=== PATIENT | female | born 1985 | race Caucasian/White ===

== ENCOUNTER 2023-10-19 07:32 | Inpatient (IN) ==
--- OUTSIDE RECORDS SUMMARY | 2023-10-19 07:44 | External Medical Summary | Summary of Care ---
Author Name Unknown Organization [facility] Address [address] [place] [address] Phone [phone] Care Team Providers Care Oceanology Teacher Name Role Phone Samantha Wells DO Primary Care Provider [phone] Encounter Details Date Type Department Care Team (Late st Contact Info) Description 10/08/2023 2:30 PM EST Office Visit [facility] [place] [facility] Maternal Medicine, [facility] [address] [facility] [place] [address] Maureen Wagner DO [address] [place] [address] affected by previous bariatric surgery, currently in third trimester*; Multigravida of advanced maternal age in first trimester; Gestational diabetes mellitus (GDM) in third trimester, gestational diabetes method of control unspecified; Anomaly of heart of fetus affecting , antepartum, single or unspecified fetus; Ultrasound for screening for growth restriction; 38 weeks gestation of Allergies No known active allergiesdocumented as of this encounter (statuses as of 10/08/2023) Medications Medication Sig Dispensed Refills Start Date End Date Status Acetaminophen 500 MG Oral Tablet (Tylenol)Indications :Morbid obesity (HCC),Family history of factor V deficiency,Pre-opera tive examination take 2 tabs by mouth every 8 hours pain after surgery for 3 days 18 Tablet 0 02/19/2022 Active Additional Information Patient not taking.Reported on 08/24/2023 Vitamin D 50 MCG (2000 UT) Oral Tablet Take 2,000 Units by mouth in the morning. 0 Active Cyanocobalamin 1000 MCG/ML Injection KitIndications:Intes tinal postoperative nonabsorption Inject 1,000 mcg into a large muscle every month 1 mL 11 02/27/2023 Active 19 29-1 MG Oral Tablet Chewable Take by mouth. 0 Active Syringe Luer Lock 25G X 5/8" 3 MLIndications:Intest inal postoperative nonabsorption For vitamin B12 injections 12 Each 0 06/30/2023 Active Calcium Citrate-Vitamin D3 315-6.25 MG-MCG Oral Tablet Take by mouth. 0 Active OneTouch Verio w/Device KitIndications:High- risk in second trimester, affected by previous bariatric surgery, currently in second trimester Use as directed. For testing blood sugar 4 times daily. One fasting level in morning. And 3 additional levels 1 hour after each meal (breakfast, lunch, dinner). 1 Kit 0 07/17/2023 Active OneTouch Verio In Vitro Strip (Glucose Blood)Indications:Hi gh-risk in second trimester, affected by previous bariatric surgery, currently in second trimester For testing blood sugar 4 times daily. One fasting level in morning. And 3 additional levels 1 hour after each meal (breakfast, lunch, dinner). 100 Strip 0 07/17/2023 Active LancetsIndications:H igh-risk in second trimester, affected by previous bariatric surgery, currently in second trimester For testing blood sugar 4 times daily. One fasting level in morning. And 3 additional levels 1 hour after each meal (breakfast, lunch, dinner). 100 Each 0 07/17/2023 Active Breast Pump Pump daily while breast feeding 1 Each 0 07/17/2023 Active Additional Information Patient not taking.Reported on 08/24/2023 OneTouch Verio In Vitro Strip (Glucose Blood)Indications:Di et controlled gestational diabetes mellitus (GDM) in third trimester,Supervisio n of high risk in third trimester Monitor blood sugar four times daily (once fasting & 1 hour after breakfast, lunch, and dinner). 150 Strip 6 08/24/2023 Active OneTouch Delica Lancets 33GIndications:Diet controlled gestational diabetes mellitus (GDM) in third trimester,Supervisio n of high risk in third trimester Monitor blood sugar four times daily (once fasting & 1 hour after breakfast, lunch, and dinner). 200 Each 6 08/24/2023 Active Promethazine HCl 25 MG Oral Tablet (Phenergan)Indicatio ns:Nausea and vomiting during Take 0.5 Tablets by mouth every 6 hours as needed for Nausea. 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 Until delivery. 60 Tablet 1 09/23/2023 Active documented as of this encounter (statuses as of 10/08/2023) Active Problems Patient Care Coordination No te Formatting of this note is d ifferent from the original. 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 Enrolled in [employer]. Instructions provided to report blood sugars each week for MFM review; continue diet controlled; request food diary 09/10/23-stable 09/17/23-stable 09/22/23: RPM Stable 10/01/23- stable 10/08/23- elevated BS after meals.msg sent to have patient scheduled for adapt Last Assessment & Plan: Working with [facility]. cardiac anomaly affecting , antep artum 06/09/2023 Overview: Muscular VSD. Needs non-urgent peds echo after delivery. Last Assessment & Plan: Muscular VSD. Needs non-urgent peds echo after delivery. Multigravida of advanced maternal age in first t rimester 03/19/2023 Overview: Low risk NIPT. Will be 38 yo at time of delivery. Last Assessment & Plan: CONSIDERATIONS: We reviewed the most pertinent aspects of the following: Advanced maternal age (AMA) refers to a woman with a diane who will be at the age of 35 or older at the estimated time of delivery and may be associated with increased morbidity. In addition to the risk of chromosomal abnormalities, there is an increased risk of congenital/structural anomalies. RECOMMENDATIONS: Recommend MFM anatomy ultrasound at 19-20 weeks gestation. As patient is 40 or greater at KENNETH: Recommend surveillance with weekly NST at 38 weeks. Recommend delivery by EDC. Marijuana use during 03/19/2023 Overview: D/c use with [facility]. Counseled on recommendation for no marijuana use in or . Medication exposure during first trimester of pr egnancy 03/19/2023 Overview: Wellbutrin, Prozac, Zofran. Stopped prozac a couple of weeks ago. Also stopped zofran and switched to phenergan. Last Assessment & Plan: Wellbutrin - Not associated with increased risk of congenital defects. Antidepressant use (not specific to Wellbutrin) in may cause temporary symptoms in newborns after delivery such as irritability, trouble sleeping/eating, however these symptoms resolve on their own and do not require treatment. Zofran - A few small studies showed a possible increased risk of heart defects (< 1%), however most studies have not shown and increased risk of defects. Fluoxetine: Not expected to increase the risk for congenital anomalies; exposure during the late third trimester may be associated with jitteriness, irritability, difficulty eating/sleeping. Most of these effects are mild and self-limited. Studies also do not agree if exposure after 20 weeks might increase the chance for pulmonary hypertension. Among the studies that suggested an increased chance, the overall chance for this lung problem was less than 1/100 (less than 1%). Anxiety during 03/19/2023 Overview: Doing well on Wellbutrin alone. No concerns at this time. Last Assessment & Plan: ANXIETY AND DEPRESSION CONSIDERATIONS: Untreated maternal anxiety and depression may be associated with an increased risk of multiple poor obstetrical outcomes including miscarriages, low weight, and delivery. Women with a history of anxiety or depression are at risk for recurrence both during and/or the period. Studies of first-trimester SSRI exposure do not demonstrate consistent data to support an increased risk for structural malformations. Anti-anxiety or depression medications have been associated with transient effects (withdrawal syndrome). RECOMMENDATIONS: Mental illness can and should be treated during when the benefits of treatment outweigh potential risks. Referral to behavioral health services as clinically indicated. H/O precipitous labor and deliveries, antepartum 03/19/2023 History of eating disorder 03/19/2023 Prothrombin mutation 03/19/2023 Overview: Heterozygous. Patient denies any personal history of VTE. Father has history of VTE. Last Assessment & Plan: CONSIDERATIONS AND RECOMMENDATIONS: Reviewed that patients who are heterozygous for prothrombin gene mutation and no history of VTE have a 0.4% to 2.6% risk for developing a VTE in . For these patients we do not recommend anticoagulation therapy during the antepartum stage of . Prophylactic anticoagulation therapy in the period is recommended as the patient has additional risk factors (first-degree relative with a history of thrombotic event. Discussed that prothrombin gene mutation has an autosomal dominant inheritance pattern. As the patient is heterozygous for the prothrombin gene mutation, there is a 50% chance that her child may be heterozygous for this gene. Previous bariatric surgery complicating pregnanc y 03/19/2023 Overview: Hx Kenneth-en-y 02/2022. Doing well without complications since. Follows with nutrition and keeps up with vitamin supplementation. Last Assessment & Plan: I reviewed the ultrasound. The anatomy that was visualized appears unremarkable, with exception of the mid muscular ventricular septal defect. The overall estimated weight is consistent with the 87th percentile for the gestational age and the abdominal circumference is consistent with the 97th percentile for the gestational age. The amniotic fluid volume is normal at 17 cm. Health counseling 03/17/2023 Overview: Problem Action Taken Date entered Entered by Date resolved Advance maternal age Maternal Medicine Consult 03/17/2023 Jackie Hartman RN 03/17/2023 Problem Action Taken Date entered Entered by Date resolved Nausea and vomiting due to Nutrition Review 9 months booklet 03/17/2023 Jackie Hartman RN 03/17/2023 Problem Action Taken Date entered Entered by Date resolved Fatigue Good nutrition and hydration will help 03/17/2023 Jackie Hartman RN 03/17/2023 Problem Action Taken Date entered Entered by Date resolved Need for food assistance referred to [facility] and local food marie 03/17/2023 Jackie Hartman RN 03/17/2023 Problem Action Taken Date entered Entered by Date resolved Current needs or questions Patient denies having any current needs or questions 04/15/2023 Natalia Nava RN 04/15/2023 Problem Action Taken Date entered Entered by Date resolved Current needs or questions Patient denies having any current needs or questions 07/17/2023 Jackie Hartman RN 07/17/2023 Problem Action Taken Date entered Entered by Date resolved Current needs or questions Patient denies having any current needs or questions 07/31/2023 Jackie Hartman RN 07/31/2023 Problem Action Taken Date entered Entered by Date resolved Current needs or questions Patient denies having any current needs or questions 08/12/2023 Jackie Hartman RN 08/12/2023 Problem Action Taken Date entered Entered by Date resolved Current needs or questions Patient denies having any current needs or questions 09/23/2023 Jackie Hartman RN 09/23/2023 Problem Action Taken Date entered Entered by Date resolved Current needs or questions Patient denies having any current needs or questions 10/08/2023 Jackie Hartman RN 10/08/2023 Last Assessment & Plan: Problem Action Taken Date entered Entered by Date resolved Current needs or questions Patient denies having any current needs or questions 06/15/2023 Natalia Nava RN 06/15/2023 Fatigue 03/03/2023 S/P bariatric surgery 03/21/2022 SREEKANTH (obstructive sleep apnea) 03/07/2022 Pre-operative examination 02/19/2022 Other iron deficiency anemias 01/21/2022 Family history of factor V deficiency 11/21/2020 RLS (restless legs syndrome) 10/17/2019 ADHD (attention deficit hype ractivity disorder), 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 Urge incontinence of urine 03/12/2018 High-risk 05/23/2015 History of positive PPD 05/23/2015 H/O bulimia nervosa 05/23/2015 H/O: substance abuse 05/23/2015 DAMION (generalized anxiety disorder) 01/12/2015 Major depressive disorder, recurrent episode 04/2015 Estimated Date of Delivery Comme nts Yes 10/22/2023 Based on Ultraso und documented as of this encounter (statuses as of 10/08/2023) Resolved Problems Problem Noted Date Diagnosed Date Resolved Date Supervision of normal 03/19/2023 03/20/2023 Nausea and vomiting during 03/19/2023 03/20/2023 Less than 8 weeks gestation of 03/03/2023 03/20/2023 Insulin resistance 01/17/2022 3 Morbid obesity 09/16/2021 03/26/2023 INFORMATION 04/12/2021 04/12/2021 Rectocele 03/12/2018 08/23/2019 Cystocele, midline 03/12/2018 0 Varicose veins of leg with complications 10/12/2017 10/17/2019 Advanced directives, counseling/discussion 07/18/2015 10/17/2019 Overview: No advanced directive. Brochure given to patient. 05/23/15 visit: [facility] First trimester screening 05/23/2015 Depression complicating , antepartum 05/23/20 15 12/14/2015 Overview: Restarted Zoloft 50mg at 11w4d Anxiety during in first trimester, antepartum 05/23/2015 01/09/2016 Supervision of high-risk 04/26/2015 09/22/2017 Overview: Desires FTS Patient recieved flu vaccine. 05/24/2015 Cara Cunningham RN Depression Discuss options with Provider Use of medication 04/26/2015 Adrianna Zeng RN Inadequate diet for Pt has a hx of an eating disorder, pt seeing a system trainer . 04/26/2015 Adrianna Zeng RN Nausea and vomiting due to Nutrition Review 9 months booklet 04/26/2015 Adrianna Zeng RN Nutrition Provided due date letter for pt to attend WIC 04/26/2015 Adrianna Zeng RN Problem Action Taken Date entered Entered by Date resolved Current needs or questions Patient denies having any current needs or questions 05/24/2015 Cara Cunningham RN 05/24/15 Problem Action Taken Date entered Entered by Date resolved Current needs or questions Patient denies having any current needs or questions 07/17/2015 Adrianna Zeng RN 07/17/15 Problem Action Taken Date entered Entered by Date resolved Breast vs bottle Pt concerned over meds Discussed meds via Mom's milk with pt. She plans to talk with Dr. Hutchison who give this to her over her thoughts on nursing. 08/14/2015 Natalia Nava RN Problem Action Taken Date entered Entered by Date resolved Current needs or questions Patient denies having any current needs or questions 09/11/2015 Adrianna Zeng RN 09/11/15 Problem Action Taken Date entered Entered by Date resolved Pt asking about obtaining a breast pump through her insurance. Faxed pt's ins info and rx for breast pump to [facility] for pt 10/09/2015 Adrianna Zeng RN 10/09/15 Problem Action Taken Date entered Entered by Date resolved Current needs or questions Patient denies having any current needs or questions 10/22/2015 Cara Cunningham RN 10/22/15 Problem Action Taken Date entered Entered by Date resolved Current needs or questions Patient denies having any current needs or questions 11/07/2015 Adrianna Zeng RN 11/07/15 Problem Action Taken Date entered Entered by Date resolved ROM ? Symptoms discussed. Provider to evaluate 11/20/2015 Natalia Nava RN Problem Action Taken Date entered Entered by Date resolved headache eval today with provider. Comfort measures discussed 11/27/2015 Natalia Nava RN Eating disorder affecting pr egnancy, antepartum 04/26/2015 12/14/2015 Borderline personality disorder 01/12/2015 10/17/2015 Bulimia 01/12/2015 08/23/2019 , normal first 04/27/201203/10 Overview: Patient given flu vaccine. 09/14/2012 Cara Cunningham RN Urine culture contaminated at NOB visit, repeat next visit. Urine culture obtained 05/27-wnl Anxiety state 04/27/2012 01/12/2015 Overview: History of anxiety, feelings of anxiety at NOB r/t vomiting. Monitor through Depression 04/27/2012 08/23/2019 Family history of diabetes mellitus 04/27/2012 10/17/2019 Overview: Early glucola--WNL Genital herpes 04/12/2010 12/14/2015 Overview: Consider suppressive therapy at 36 weeks. Rx sent 11/14/2015 Polycystic ovaries 12/13/2003 1 Metabolic syndrome 12/13/2003 0 Other acne 1999 04/27/2012 PPD positive, treated 2019 documented as of this encounter (statuses as of 10/08/2023) Immunizations Name Administration Dates Next Due Covid-19 Ad26, Single Dose (Radha/J&J) 021 HEP A - Hepatitis A (Adult > 18 yrs) 07/20/2006 HPV Vaccine, 4-Valent 01/28/2010,10/01/2009,07/1009/27/2009 PPD 12/06/2009 Seasonal Influenza, PF, 6 M & above, IM , (FluLaval or Fluzone) 07/17/2023,06/05/2019,04/19/2018 Seasonal Influenza, Quadriva lent, No Preserve, IM 04/28/2016,05/24/2015 Seasonal Influenza, Split, I IV3, With Preserve, Inj 09/14/2012 TDAP (age 10 and older)(Boostrix) 07/31/2023 TDAP (age 11 and older)(Adacel) 10/29/2011 Typhoid Parenteral 07/20/2006 documented as of this encounter Social History Tobacco Use Types Packs/Day Years Used Date Smoking Tobacco: Former Cigarettes 2 2 012 - 2013 Smokeless Tobacco: Never Comments:Socially smoked for about 2 years Alcohol Use Standard Drinks/Week Comments Not Currently 0.8 (1 standard drink = 0.6 oz p ure alcohol) occasional PHQ-2 Answer Date Recorded PHQ Adult Total Score 1 11/21/2020 Hunger Vital Sign Answer Date Recorded Within the past 12 months, y ou worried that your food would run out before you got the money to buy more. Never true 03/17/20 23 Within the past 12 months, t he food you bought just didn't last and you didn't have money to get more. Never true 03/17/2023 [place] Depression Scale Answer Date Recorded [place] Depression Scale Total 9 09/23/2023 The thought of harming myself has occurred to me . Never 09/23/2023 Estimated Date of Delivery Comme nts Yes 10/22/2023 Based on Ultraso und Sex and Gender Information Value Date Recorded Sex Assigned at Female 01/15/2021 4:27 PM EDT Gender Identity Female 01/15/2021 4:27 PM EDT Sexual Orientation Don't know 01/15/2021 4: 27 PM EDT Job Start Date Occupation Industry Not on file Not on file Not on file documented as of this encounter Functional Status Functional Status Response Date of Assess ment Are you deaf or do you have serious difficulty h earing? No 03/06/2022 Are you blind or do you have serious difficulty seeing, even when wearing glasses? No 03/06/2022 Do you have serious difficul ty walking or climbing stairs? (5 years old or older) No 03/06/2022 Do you have difficulty dress ing or bathing? (5 years old or older) No 03/06/2022 Because of a physical, menta l, or emotional condition, do you have difficulty doing errands alone such as visiting a doctor s office or shopping? (15 years old or older) No 03/06/20 22 Cognitive Status Response Date of Assessm ent Because of a physical, menta l, or emotional condition, do you have serious difficulty concentrating, remembering, or making decisions? (5 years old or older) No 03/06/2022 documented as of this encounter Progress Notes * Maureen Wagner, - 10/08/2023 3:41 PM EST Sandra presented today at 38w0d for an ultrasound for the following indications: affected by previous bariatric surgery, currently in third trimester Multigravida of advanced maternal age in first trimester Gestational diabetes mellitus (GDM) in third trimester, gestational diabetes method of control unspecified Anomaly of heart of fetus affecting , antepartum, single or unspecified fetus Ultrasound for screening for growth restriction 38 weeks gestation of Ultrasound summary: Patient presented for growth assessment at 38w 0d. Large AC noted at >99% with overall EFW of 3621 g at 82%. MYCHAL 12.7 cm. Cephalic presentation. I reviewed the ultrasound images. Sandra was given the opportunity to meet with me if she had any questions. Please refer to the ultrasound report for additional details about today's ultrasound examination. RECOMMENDATIONS: Follow up with MFM for ultrasound as clinically indicated. See prior formal MFM consultation note. Thank you for allowing us to participate in the care of this patient. Please call with any questions. Maureen Wagner DO 10/08/2023 3:41 PM documented in this encounter Plan of Treatment Upcoming Encounters Date Type Department Care Team (Late st Contact Info) Description 10/09/2023 2:00 PM EST Hem/Onc Treatment Hematology/[address]cology [address] [id number] Brandy, Chair 9 [facility] [address] [facility] [address] 10/14/2023 1:30 PM EST Office Visit Gynecology/Obstetrics Eliecer Allen [address] [place] [address] Shira Cedeño CRNP [address] [place] [address] Yessy Allen Stress Tests Anna [address] [place] [address] 11/05/2023 1:00 PM EDT Telemedicine Psychiatry, [address] [place] [address] Ivis Rodriguez MD [address] [place] [address] 11/09/2023 1:00 PM EDT Laboratory Laboratory [facility] [address] [place] [id number] [place], Lab [facility] [address] [place] [address] 11/24/2023 2:00 PM EDT Office Visit Hematology/Oncology [facility] [address] [place] [phone] Majo Luong CRNP [address] [place] [address] 12/30/2023 1:40 PM EDT Office Visit Nutrition & Weight Management, [facility] [address] [place] [facility] [place] [address] Delma Nunez PA-C [facility] [place] [address] 03/30/2024 2:00 PM EDT Office Visit Nutrition & Weight Management, [facility] [place] [address] Delma Nunez PA-C [address] [place] [address] Health Maintenance Due Date Last Done Comments Pneumococcal Vaccine: Pediatrics (0 to 5 Years) and At-Risk Patients (6 to 64 Years) (1 of 2 - PCV) 10/17/1989 HPV/Co-Test 10/17/2013 Depression Screening 11/21/2021 11/21/2020 COVID-19 Vaccine (2 - 2022-24 season) 2023 10/21/2020 Cervical Cancer Screening 05/17/2024 Pap Smear 05/17/2024 05/17/2021, 09/10, 09/22/2017, Additional history exists Diabetes Screening 09/23/2026 09/23/2023, 1 08/30/2022, 02/27/2023, Additional history exists DTaP,Tdap,and Td Vaccines (4 - Td or Tdap) 07/31/2033 07/31/2023, 10/29/2011, 1999 MENINGOCOCCAL (MENACTRA/MENVEO) Aged Out 04/11/2003 No longer eligible based on patient's age to complete this topic GARDASIL-HPV IMMUNIZATION SERIES Completed 01/28/2010, 10/01/2009, 07/27/2009 Influenza Vaccine (FLU shot) Completed 03/2023, 06/05/2019, 04/19/2018, Additional history exists documented as of this encounter Medical Devices Not on filedocumented as of this encounter Visit Diagnoses Diagnosis affected by previous bariatric surgery, currently in third trimester- Primary Multigravida of advanced maternal age in first trimester Gestational diabetes mellitus (GDM) in third trimester, gestational diabetes method of control unspecified Anomaly of heart of fetus affecting , antepartum, single or unspecified fetus Ultrasound for screening for growth restriction screening for growth retardation using ultrasonics 38 weeks gestation of state, incidental documented in this encounter Advance Directives Latest Code Status on File Code Status Date Activated Date Inactivated Comments Full Code 03/06/2022 7:57 PM 03/07/2022 8:32 PM Question Answer Comments Discussion of Advance Direct melissa occurred with: Not Discussed Code Status History Code Status Date Activated Date Inactivated Comments Full Code 03/06/2022 1:49 PM 03/06/2022 7:57 PM Question Answer Comments Discussion of Advance Direct melissa occurred with: Not Discussed Care Teams Oceanology Teacher Relationship Specialty Start Date End Date Samantha Wells DO [address] [place] [address] PCP - General Family Medicine 11/21/20 documented as of this encounter
--- OUTSIDE RECORDS SUMMARY | 2023-10-19 07:44 | External Medical Summary | Summary of Care ---
Author Name Unknown Organization [facility] Address [address] [place] [address] Phone [phone] Care Team Providers Care Licensed Sales Producer Name Role Phone Samantha Wells DO Primary Care Provider [phone] Reason for Visit * Reason Comments Return Visit Encounter Details Date Type Department Care Team (Late st Contact Info) Description 10/14/2023 1:30 PM EST Office Visit Gynecology/Obstetric s [facility] [address] [facility] [place] [address] Shira Cedeño CRNP [address] [facility] [place] [address] Alejandro, Non Stress Tests Anna [address] [facility] [place] [address] High-risk in third trimester*; Medication exposure during first trimester of ; Anxiety during ; H/O precipitous labor and deliveries, antepartum; Prothrombin mutation (HCC); Previous bariatric surgery affecting , antepartum; Anomaly of heart of fetus affecting , antepartum, single or unspecified fetus; Diet controlled gestational diabetes mellitus (GDM) in third trimester; Anemia during in third trimester; 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] as of this encounter (statuses as of 10/14/2023) Resolved Problems Problem Noted Date Diagnosed Date [...] of an eating disorder, pt seeing a triple drum operator . 04/26/2015 Adrianna Zeng RN Nausea and [...] any current needs or questions 07/17/2015 Adrianna Zegn RN 07/17/15 Problem Action Taken Date entered [...] info and rx for breast pump to [facility] for pt 10/09/2015 Adrianna Zeng RN 10/09/15 [...] as of this encounter (statuses as of 10/14/2023) Immunizations Name Administration Dates Next Due Covid-19 [...] Smoking Tobacco: Former Cigarettes 2 2 012 2013 Smokeless Tobacco: Never Comments:Socially smoked for [...] money to get more. Never true 03/17/2023 [place] Depression Scale Answer Date Recorded [place] Depression Scale Total 9 09/23/2023 The thought [...] on file documented as of this encounter Last Filed Vital Signs Vital Sign Reading Time Taken Comments Blood Pressure 106/64 10/14/2023 2:47 PM EST Pulse - - Temperature - - Respiratory Rate - - Oxygen Saturation - - Inhaled Oxygen Concentration - - Weight 78.5 kg (173 lb) 10/14/2023 2:47 PM EST Height 157.5 cm (5' 2") 10/14/2023 2:47 PM EST Body Mass Index 31.64 10/14/2023 2:47 PM EST documented in this encounter Functional Status Functional Status Response [...] (15 years old or older) No 03/06/20 Cognitive Status Response Date of Assessm ent Because of a physical, menta l, or emotional condition, do you have serious difficulty concentrating, remembering, or making decisions? (5 years old or older) No 03/06/2022 documented as of this encounter Progress Notes * Shira Cedeño CRNP - 10/14/2023 1:38 PM EST 38w6d No concerns. Baby is active. No regular contractions. IOL Wednesday 10/18. ASSESSMENT assessment with Non-stress Test completed on 10/14/2023 at 38.6weeks gestation for indication of advanced maternal age heart baseline: 130 bpm Variability: Moderate Decelerations: absent Accelerations: present Contractions: Present, irregular NST start time: 1317 NST stop time: 1421 NST strip reviewed, interpreted, and approved by OB provider, JAMIA Gonzalez . NST strip stored in clinic storage file documented in this encounter Nursing Notes * Jackie Hartman RN - 10/14/2023 1:33 PM EST Patient seen by [facility] Insulator Technician. Patient denies any questions or concerns. documented in this encounter Plan of Treatment Upcoming Encounters Date Type Department Care Team (Late st Contact Info) Description 11/05/2023 1:00 PM EDT [facility] [address] [place] [address] Ivis Rodriguez MD [address] [place] [address] 11/09/2023 1:00 PM EDT Laboratory Laboratory [facility] [address] [facility] [place] [phone] [place], [facility] [address] [facility] [place] [address] 11/24/2023 2:00 PM EDT Office Visit Hematology/Oncology [facility] [place] [address] [facility] [place] [phone] Majo Luong CRNP [address] [facility] [place] [address] 12/30/2023 1:40 PM EDT Office Visit Nutrition & Weight Management, [facility] [address] [place] [address] Delma Nunez PA-C [address] [place] [address] 03/30/2024 2:00 PM EDT Office Visit Nutrition & Weight Management, [facility] [address] [place] [address] Delma Nunez PA-C [address] [place] [address] Health Maintenance Due Date Last Done Comments Pneumococcal Vaccine: Pediatrics (0 to 5 Years) and At-Risk Patients (6 to 64 Years) (1 of 2 - PCV) 10/17/1989 HPV/Co-Test 10/17/2013 Depression Screening 11/21/2021 11/21/2020 COVID-19 Vaccine (2 - 2022- season) 2023 10/21/2020 Cervical Cancer Screening 05/17/2024 [...] as of this encounter Visit Diagnoses Diagnosis High-risk in third trimester- Primary Medication exposure during first trimester of Supervision of other high-risk Anxiety during H/O precipitous labor and deliveries, antepartum with other poor obstetric history Prothrombin mutation (HCC) Primary hypercoagulable state Previous bariatric surgery affecting , antepartum Anomaly of heart of fetus affecting , antepartum, single or unspecified fetus Diet controlled gestational diabetes mellitus (GDM) in third trimester Anemia during in third trimester 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
--- OUTSIDE RECORDS SUMMARY | 2023-10-19 07:44 | External Medical Summary | Summary of Care ---
Author Name Unknown Organization [facility] Address [address] [place] [address] Phone [phone] Care Team Providers Care House Registry Rn Name Role Phone Samantha Wells DO Primary Care Provider [phone] Reason for Visit * Reason Comments Treatment Encounter Details Date Type Department Care Team (Latest Contact Info) Description 10/09/2023 2:00 PM EST Hem/Onc Treatment Hematology/Oncology Treatment, [place] [address] [place] [address] Brandy, Chair 9 Hem Onc Scene [address] [place] [address] Anemia during in third trimester*; Status post bariatric surgery; Iron deficiency Allergies No known active allergiesdocumented as of this encounter (statuses as of 10/09/2023) Medications Medication Sig Dispensed Refills Start Date End Date Status Acetaminophen 500 MG Oral Tablet (Tylenol)Indications :Morbid obesity (HCC),Family history of factor V deficiency,Pre-opera tive examination take 2 tabs by mouth every 8 hours pain after surgery for 3 days 18 Tablet 0 02/19/2022 Active Additional Information Patient not taking.Reported on 08/24/2023 Vitamin D 50 MCG (1999 UT) Oral Tablet Take 2,000 Units by [...] as of this encounter (statuses as of 10/09/2023) Active Problems Patient Care Coordination No te [...] 08/24/23: MFM ADAPT consult complete. Enrolled in [facility]. Instructions provided to report blood sugars [...] resolved Need for food assistance referred to [facility] and local food marie 03/17/2023 Jackie Hartman [...] as of this encounter (statuses as of 10/09/2023) Resolved Problems Problem Noted Date Diagnosed Date Resolved Date Supervision of normal 03/19/2023 03/20/2023 Nausea and vomiting during 03/19/2023 03/20/2023 Less than 8 weeks gestation of 03/03/2023 03/20/2023 Insulin resistance 01/17/2022 Morbid obesity 09/16/2021 03/26/2023 INFORMATION 04/12/2021 04/12/2021 [...] of an eating disorder, pt seeing a lead sewage plant operator . 04/26/2015 Adrianna Zeng RN Nausea [...] info and rx for breast pump to [facility] for pt 10/09/2015 Adrianna Zeng RN 10/09/15 [...] History of anxiety, feelings of anxiety at [facility] r/t vomiting. Monitor through Depression 04/27/2012 08/23/2019 Family history of diabetes mellitus 04/27/2012 10/17/2019 Overview: Early glucola--WNL Genital herpes 04/12/2010 12/14/2015 Overview: Consider suppressive therapy at 36 weeks. Rx sent 11/14/2015 Polycystic ovaries 12/13/2003 1 Metabolic syndrome 12/13/2003 0 Other acne 1999 04/27/2012 PPD positive, treated 2019 documented as of this encounter (statuses as of 10/09/2023) Immunizations Name Administration Dates Next Due Covid-19 Ad26, Single Dose ([employer]/J&J) 021 HEP A - Hepatitis A (Adult [...] money to get more. Never true 03/17/2023 [place] Depression Scale Answer Date Recorded [place] Depression Scale Total 9 09/23/2023 The thought [...] Sign Reading Time Taken Comments Blood Pressure 99/67 10/09/2023 2:11 PM EST Pulse 80 10/09/2023 2:11 PM EST Temperature 36.5 C (97.7 F) 10/09/2023 2:11 PM ES T Respiratory Rate 18 10/09/2023 2:11 PM EST Oxygen Saturation - - Inhaled Oxygen Concentration - - Weight - - Height - - Body Mass Index - - documented in this encounter Functional Status Functional [...] No 03/06/2022 documented as of this encounter Nursing Notes * Mariangel Rutherford, GEOVANI - 10/09/2023 2:56 PM EST Safety and Risk for Injury Patient will remain free from injury. Ensure appropriate safety devices are available. Provide and maintain safe environment. Functional status at today's visit: Fully active, able to carry on all pre-disease performance without restriction Patient was assessed for symptoms or adverse side effects during treatment. Goals: Patient here for venofer. Possible barriers to meeting goals: IV pole. Stability of the patient: Moderately stable - low risk of patient condition declining or worsening Summary regarding today's goals: Met: Patient received venofer without any issues. documented in this encounter Plan of Treatment Upcoming Encounters Date Type Department Care Team (Late st Contact Info) Description 10/14/2023 1:30 PM EST Office Visit Gynecology/Obstetrics Eliecer Allen [address] [facility] [place] [address] Shira Cedeño CRNP [address] [place] [address] Yessy Allen Stress Tests Anna [address] [place] [address] 11/05/2023 1:00 PM EDT Telemedicine [facility] [address] [place] [address] Ivis Rodriguez MD [address] [place] [address] 11/09/2023 1:00 PM EDT Laboratory Laboratory [facility] Marielos Nava [address] [place] [phone] Brandy, [facility] [address] [place] [address] [address] 11/24/2023 2:00 PM EDT Office Visit Hematology/Oncology [facility] Marielos Nava [address] [place] [phone] Majo Luong, JAMIA [address] [place] [address] 12/30/2023 1:40 PM EDT Office Visit Nutrition & Weight Management, [facility] [address] [facility] [place] [address] Delma Nunez PA-C [address] [place] [address] 03/30/2024 2:00 PM EDT Office Visit Nutrition & Weight Management, [facility] 132 [facility] [place] [address] Delma Nunez PA-C [address] [place] [address] Health Maintenance Due Date Last Done Comments [...] as of this encounter Visit Diagnoses Diagnosis Anemia during in third trimester- Primary Status post bariatric surgery Bariatric surgery status Iron deficiency Iron deficiency anemia, unspecified documented in this encounter Administered Medications Active Administered Medications - up to 3 most recent administrations Medication Order MAR Action Action Date Dose Rate Site diphenhydrAMINE (Benadryl) inj 50 mg 50 mg, IV Push, ONCE PRN Other, Hypersensitivity Reaction, Starting on Thu10/09/23 at 1414, Until 10/10/23 at 1413, For 24 hours EPINEPHrine 1 MG/ML inj 0.3 mg 0.3 mg, Intramuscular, ONCE PRN Other, Hypersensitivity Reaction or Anaphylaxis, Starting on Thu10/09/23 at 1414, Until 10/10/23 at 1413, For 24 hours Hydrocortisone Sod Suc (PF) (Solu-Cortef) inj 100 mg 100 mg, IV Push, ONCE PRN Other, Hypersensitivity Reaction, Starting on Thu10/09/23 at 1414, Until 10/10/23 at 1413, For 24 hours NSS infusion 500 mL, Intravenous, at 50 mL/hr, CONTINUOUS, Starting on Thu10/09/23 at 1515, Until 10/10/23 at 0114 Start Infusion 10/09/2023 2:21 PM EST 500 mL 50 mL/hr oxygen GAS Inhalation, OXYGEN, First dose on Thu10/09/23 at 1600, Until Discontinued, Device/Managed by: Low Flow Device, Goal SPO2 (%): 91-95, Starting Device: Nasal Cannula, Initial Flow Rate (LPM): 2, Lowest Support: Nasal Cannula: Flow 0-6 LPM. Titrate up/down by 1 LPM., Higher Support: Non-Rebreather (NRB) Mask: Minimum of 10 LPM. Titrate to maintain bag inflation., Titration Interval: Q2 minutes and as needed., Notify Provider: For sudden DECREASE in resting SPO2 to less than 85% and when escalating delivery device., Wean patient off Oxygen when the oxygen saturation is greater than or equal to 93% Inactive Administered Medications - up to 3 most recent administrations Medication Order MAR Action Action Date Dose Rate Site Iron Sucrose (Venofer) 300 mg in NSS 250 mL ivpb 300 mg, IV Piggyback, ONCE, 1 dose, On Thu10/09/23 at 1545, Administer over 90 Minutes Start Infusion 10/09/2023 2:22 PM EST 300 mg 166.67 mL/hr documented in this encounter Advance Directives Latest [...] melissa occurred with: Not Discussed Care Teams House Registry Rn Relationship Specialty Start Date End Date Samantha Wells DO [address] [place] [address] PCP - General Family Medicine 11/21/20 documented as of this encounter
--- OUTSIDE RECORDS SUMMARY | 2023-10-19 07:45 | External Medical Summary | Summary of Care ---
Author Name Unknown Organization [facility] Address [address] [place] [address] Phone [phone] Care Team Providers Care Atm Technician Name Role Phone Samantha Wells DO Primary Care Provider [phone] Reason for Visit * Reason Comments Return Visit Encounter Details Date Type Department Care Team (Late st Contact Info) Description 09/30/2023 2:00 PM EST Office Visit Gynecology/Obstetri kendell Allen [address] [facility] [place] [address] Shira Cedeño CRNP [address] [facility] [place] [address] Nurse Tiago Allen Beginnings Return Anna [address] [place] [address] High-risk in third trimester*; Multigravida of advanced maternal age in first trimester; Medication exposure during first trimester of ; Anxiety during ; H/O precipitous labor and deliveries, antepartum; Prothrombin mutation (HCC); affected by previous bariatric surgery, currently in third trimester; Anomaly of heart of fetus affecting , antepartum, single or unspecified fetus; Diet controlled gestational diabetes mellitus (GDM) in third trimester; Anemia during in third trimester; 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 Enrolled in Current Health. Instructions provided to report blood sugars each week for MFM review; continue diet controlled; request food diary 09/10/23-stable 09/17/23-stable 09/22/23: RPM Stable Last Assessment & Plan: Working with ADAPT. [...] resolved Need for food assistance referred to [facility] and local food marie 03/17/2023 [...] or questions 09/23/2023 Jackie Hartman RN 09/23/2023 Last Assessment & Plan: Problem Action Taken [...] as of this encounter (statuses as of 09/30/2023) Resolved Problems Problem Noted Date Diagnosed Date [...] of an eating disorder, pt seeing a manager review . 04/26/2015 Adrianna Zeng RN Nausea and [...] info and rx for breast pump to [facility] for pt 10/09/2015 Adrianna Zeng RN 10/09/15 [...] as of this encounter (statuses as of 09/30/2023) Immunizations Name Administration Dates Next Due Covid-19 Ad26, Single Dose ([employer]/J&J) 021 HEP A - Hepatitis A (Adult > 18 yrs) 07/20/2006, 04/11/2003 HEP B - Hepatitis B (Adole/H igh Risk Ped, 11-15 yrs 07/11/1998,01/08/1998,12/01/1997 HPV Vaccine, 4-Valent 01/28/2010,10/01/2009,07/1009/27/2009 MMR - Measles/Mumps/Rubella Vaccine 11/13/2000,0 12/01/1997,01/20/1985 Meningococcal Polysaccharide Vaccine ([place]) 04/11/2003 PPD 12/06/2009,10/21/1999 Seasonal Influenza, PF, 6 M & above, IM , (FluLaval or Fluzone) 07/17/2023,06/05/2019,04/19/2018 Seasonal Influenza, Quadriva lent, No Preserve, IM 04/28/2016,05/24/2015 Seasonal Influenza, Split, I IV3, With Preserve, Inj 09/14/2012,05/24/2003 TD - Tetanus/Diptheria (ADULT) 1999 TDAP (age 10 and older)(Boostrix) 07/31/2023 TDAP (age 11 and older)(Adacel) 10/29/2011 Typhoid Parenteral 07/20/2006,04/11/2003 Yellow Fever Vaccine 04/11/2003 documented as of this encounter Social History [...] money to get more. Never true 03/17/2023 [place] Depression Scale Answer Date Recorded [place] Depression Scale Total 9 09/23/2023 The thought [...] Sign Reading Time Taken Comments Blood Pressure 110/68 09/30/2023 2:09 PM EST Pulse - - Temperature - - Respiratory Rate - - Oxygen Saturation - - Inhaled Oxygen Concentration - - Weight 77.1 kg (170 lb) 09/30/2023 2:09 PM EST Height 157.5 cm (5' 2") 09/30/2023 2:09 PM EST Body Mass Index 31.09 09/30/2023 2:09 PM EST documented in this encounter Functional [...] Progress Notes * Shira Cedeño CRNP - 09/30/2023 2:23 PM EST 36w6d No concerns. Taking valtrex as directed. Has growth u/s with MFM next week as well as NST. Baby is active. No contractions, bleeding, or LOF. To begin NSTs at 38w for age >40 at time of delivery. IOL scheduled for 10/19/23. Sock And Stocking Ironer Documentation Provider requested captain fire prevention bureau. Name of captain fire prevention bureau: JAMIA Price * Claire Craft LPN - 09/30/2023 2:09 PM EST 36w6d Gbs today documented in this encounter Plan of Treatment Upcoming Encounters Date Type Department Care Team (Late st Contact Info) Description 10/02/2023 2:00 PM EST Hem/Onc Treatment Hematology/Oncology Treatment, [place] [address] [place] [phone] [place], Chair 8 Hem Onc [facility] 200 [facility], [place] [address] 10/08/2023 1:00 PM EST Office Visit Gynecology/Obstetrics Eliecer Benítezs [address] [facility] [place] [address] Shira Cedeño CRNP [address] [place] [address] Allen, Non Stress Tests [facility] [address] [facility] [facility] [address] 10/08/2023 2:30 PM EST [facility] [place] [phone] 10/09/2023 2:00 PM EST Hem/Onc Treatment Hematology/Oncology Treatment, [place] [address] [facility], [place] [phone] [place], Chair 9 Hem Onc [facility] 200 [facility], [place] [address] 10/14/2023 1:30 PM EST Office Visit Gynecology/Obstetrics Eliecer [facility] [address] [facility] [place] [address] Shira Cedeño CRNP [address] [facility] [place] [address] Alejandro, Non Stress Tests [facility] [address] [facility] [address] 11/05/2023 1:00 PM EDT Telemedicine Psychiatry, [place] [address] [place] [address] Ivis Rodriguez MD [address] [place] [address] 11/09/2023 1:00 PM EDT Laboratory Laboratory [place], [place] [address] [place] [phone] [place], Lab [facility] [address] [place] [address] 11/24/2023 2:00 PM EDT Office Visit Hematology/Oncology [facility] [address] [place] [phone] Majo Luong CRNP [address] [place] [address] [place] [address] 12/30/2023 1:40 PM EDT Office Visit Nutrition & Weight Management, [facility] [address] [place] [address] Delma Nunez PA-C [address] [facility] [place] [address] 03/30/2024 2:00 PM EDT Office Visit Nutrition & Weight Management, [facility] 132 [facility] [place] [address] Delma Nunez PA-C 132 [facility] [place] [address] Pending Results Name Type Priority Associated Diagnoses Date /Time GROUP B STREP CULTURE/PCR Lab Routine High-risk in third trimester 09/30/2023 2:48 PM EST Scheduled Orders Name Type Priority Associated Diagnoses Orde r Schedule GROUP B STREP CULTURE/PCR Lab Routine High-risk in third trimester Expected: 09/30/2023, Expires: 09/30/2024 Health Maintenance Due Date Last Done Comments Pneumococcal Vaccine: Pediatrics (0 to 5 Years) and At-Risk Patients (6 to 64 Years) (1 of 2 - PCV) 10/17/1989 HPV/Co-Test 10/17/2013 Depression Screening 11/21/2021 11/21/2020 COVID-19 Vaccine ( - 2022- season) 2023 10/21/2020 Cervical Cancer [...] Diagnoses Diagnosis High-risk in third trimester- Primary Multigravida of advanced maternal age in first trimester Medication exposure during first trimester of Supervision of other high-risk Anxiety during H/O precipitous labor and deliveries, antepartum with other poor obstetric history Prothrombin mutation (HCC) Primary hypercoagulable state affected by previous bariatric surgery, currently in third trimester Anomaly of heart of fetus affecting , antepartum, single or unspecified fetus Diet controlled gestational diabetes mellitus (GDM) in third trimester Anemia during in third trimester 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
--- OUTSIDE RECORDS SUMMARY | 2023-10-19 07:45 | External Medical Summary | Summary of Care ---
Author Name Unknown Organization [facility] Address [address] [place] [address] Phone [phone] Care Team Providers Care Home Aid Name Role Phone Samantha Wells DO Primary Care Provider [phone] Reason for Visit * Reason Comments Return Visit Encounter Details Date Type Department Care Team (Late st Contact Info) Description 10/08/2023 1:00 PM EST Office Visit Gynecology/Obstetric s Marbin'morteza Allen [address] [facility] [place] [address] Shira Cedeño CRNP [address] [place] [address] Alejandro Non Stress Tests Anna [address] [place] [address] High-risk in third trimester*; Multigravida of advanced [...] Gestational diabetes mellitus (GDM) in third tri [facility] 08/19/2023 Overview: Diagnosed based on abnormal [...] resolved Need for food assistance referred to [facility] and local food [employer] 03/17/2023 Jackie Hartman RN 03/17/2023 Problem Action [...] of an eating disorder, pt seeing a rn lactation . 04/26/2015 Adrianna Zeng RN Nausea and [...] info and rx for breast pump to [facility] for pt 10/09/2015 Adrianna Zeng [...] money to get more. Never true 03/17/2023 [place] Depression Scale Answer Date Recorded [place] Depression Scale Total 9 09/23/2023 The thought [...] Sign Reading Time Taken Comments Blood Pressure 114/62 10/08/2023 12:50 PM EST Pulse - - Temperature - - Respiratory Rate - - Oxygen Saturation - - Inhaled Oxygen Concentration - - Weight 78.5 kg (173 lb) 10/08/2023 12:50 PM EST Height 157.5 cm (5' 2") 10/08/2023 12:50 PM EST Body Mass Index 31.64 10/08/2023 12:50 PM EST documented in this encounter Functional [...] Progress Notes * Shira Cedeño CRNP - 10/08/2023 1:33 PM EST 38w No concerns. Baby is active. No contractions, bleeding, LOF. Asking for cervical check. Bottle Inspector Documentation Provider requested athletics director. Name of athletics director: Claire. ASSESSMENT assessment with Non-stress Test completed on 10/08/2023 at 38weeks gestation for indication ofAMA heart baseline: 120 bpm Variability: Moderate Decelerations: absent Accelerations: present Contractions: None NST start time: 1245 NST stop time: 1317 NST strip reviewed, interpreted, and approved by OB provider, JAMIA Gonzalez . NST strip stored in [employer] documented in this encounter Nursing Notes * Jackie Hartman RN - 10/08/2023 1:31 PM EST Patient seen by [facility] Leaf Sucker Operator. Patient denies any questions or concerns. documented in this encounter Plan of Treatment Upcoming Encounters Date Type Department Care Team (Late st Contact Info) Description 10/08/2023 2:30 PM EST Imaging Maternal Medicine Imaging, [address] [place] [address] 10/08/2023 2:30 PM EST Office Visit Veterinary Radiologist Obstetrics Maternal Medicine, Anna Allen [address] [facility] [address] Maureen Wagner DO [address] [place] [address] 10/09/2023 2:00 PM EST Hem/Onc Treatment Hematology/Oncology Treatment, [place] [address] [place] [address] Brandy, Chair [address] [facility] [address] [place] [address] 10/14/2023 1:30 PM EST Office [facility] [address] [facility] [place] [address] Shira Cedeño CRNP [address] [facility] [address] Allen, Non Stress Tests [address] [place] [address] 11/05/2023 1:00 PM EDT Telemedicine Psychiatry, [place] [address] [place] [address] Ivis Rodriguez MD [address] [place] [address] 11/09/2023 1:00 PM EDT Laboratory Laboratory [facility] [place] [address] [place] [address] Brandy, Lab [facility] 200 Anna [facility] [place] [address] 11/24/2023 2:00 PM EDT Office Visit Hematology/Oncology [facility] [place] [address] [place] [phone] Majo Luong CRNP [address] [facility] [place] [address] 12/30/2023 1:40 PM EDT Office Visit Nutrition & Weight Management, [facility] [address] [place] [address] Delma Nunez PA-C 132 [place] [address] 03/30/2024 2:00 PM EDT Office Visit Nutrition & Weight Management, [facility] 132 [place] [address] Delma Nunez PA-C 132 [place] [address] Health Maintenance Due Date Last Done Comments [...] melissa occurred with: Not Discussed Care Teams Home Aid Relationship Specialty Start Date End Date Samantha Wells DO 132 [facility] [place] [address] PCP - General Family Medicine 11/21/20 documented as of this encounter
--- OUTSIDE RECORDS SUMMARY | 2023-10-19 07:45 | External Medical Summary | Summary of Care ---
Author Name Unknown Organization [facility] Address [address] [place] [address] Phone [phone] Care Team Providers Care Bus Analyst Name Role Phone Samantha Wells DO Primary Care Provider [phone] Reason for Visit * Reason Comments Return Visit Encounter Details Date Type Department Care Team (Late st Contact Info) Description 09/10/2023 1:15 PM EST Office Visit Gynecology/Obstetri kendell Allen [address] [facility] [place] [address] Jannie Collado PA-C [address] [place] [address] Nurse Tiago Allen Beginnings Return Anna [address] [place] [address] High-risk in third trimester*; Multigravida of advanced maternal age in first trimester; Medication exposure during first trimester of ; Anxiety during ; H/O precipitous labor and deliveries, antepartum; Prothrombin mutation (HCC); 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 30 Tablet 0 08/26/2023 Active documented as of this encounter (statuses as of 09/23/2023) Active Problems Patient Care Coordination No te [...] resolved Need for food assistance referred to [facility] and local food marie 03/17/2023 Jackie Hartman [...] as of this encounter (statuses as of 09/23/2023) Resolved Problems Problem Noted Date Diagnosed Date [...] of an eating disorder, pt seeing a motorcycle delivery driver . 04/26/2015 Adrianna Zeng RN Nausea and [...] info and rx for breast pump to [facility] for pt 10/09/2015 Adrianna Zeng [...] Overview: Patient given flu vaccine. 09/14/2012 Cara L Cunningham, RN Urine culture contaminated at [facility] visit, repeat next visit. Urine culture obtained 05/27-wnl Anxiety state 04/27/2012 01/12/2015 Overview: History of anxiety, feelings of anxiety at [facility] r/t vomiting. Monitor through Depression 04/27/2012 08/23/2019 Family history of diabetes mellitus 04/27/2012 10/17/2019 Overview: Early glucola--WNL Genital herpes 04/12/2010 12/14/2015 Overview: Consider suppressive therapy at 36 weeks. Rx sent 11/14/2015 Polycystic ovaries 12/13/2003 1 Metabolic syndrome 12/13/2003 0 Other acne 1999 04/27/2012 PPD positive, treated 2019 documented as of this encounter (statuses as of 09/23/2023) Immunizations Name Administration Dates Next Due Covid-19 [...] Used Date Smoking Tobacco: Former Cigarettes 2 Q uit: 2013 Smokeless Tobacco: Never Comments:Socially smoked for [...] money to get more. Never true 03/17/2023 [place] Depression Scale Answer Date Recorded [place] Depression Scale Total 9 09/23/2023 The thought [...] Reading Time Taken Comments Blood Pressure 106/64 09/10/2023 1:32 PM EST Pulse - - Temperature - - Respiratory Rate - - Oxygen Saturation - - Inhaled Oxygen Concentration - - Weight 77.2 kg (170 lb 3.2 oz) 09/10/2023 1:32 P M EST Height 157.5 cm (5' 2") 09/10/2023 1:32 PM EST Body Mass Index 31.13 09/10/2023 1:32 PM EST documented in this encounter Functional [...] as of this encounter Progress Notes * Jannie Collado PA-C - 09/10/2023 1:38 PM EST 34w0d Had growth with MFM following this appointment secondary to GDM. Denies VB, LOF. Pos FM. Becoming more uncomfortable, feels bigger in this than last. Having some back pain too, has not tried tylenol. Does not feel contractions. Offered pelvic exam, declines. Reviewed comfort measures, belly support band. Was deciding on [facility] vs [facility] delivery. Want [facility] delivery as she is used to this. Reviewed GBS next visit. CBC due now. RTC in 2 weeks Jannie Collado PA-C documented in this encounter Nursing Notes * Jackie Hartman RN - 09/10/2023 1:35 PM EST Patient here ÁNGEL visit 34w0d Increase in back pain - has not tried tylenol + FM No leaking/bleeding/contractions Labor instructions given Patient seen by [facility] Ribbon Sweatband Operator. Patient denies any questions or concerns. documented in this encounter Plan of Treatment Upcoming Encounters Date Type Department Care Team (Late st Contact Info) Description 09/23/2023 2:10 PM EST Laboratory Laboratory, [facility] [address] [place] [address] Alejandro Allen Anna [address] [facility] [place] [address] Intestinal postoperative nonabsorption 09/25/2023 2:15 PM EST Hem/Onc Treatment Hematology/Oncolog y Treatment, [place] 200 [facility] [place] [address] Brandy, Chair 1 Hem Onc [address] 200 [facility] [place], [place] [address] 09/30/2023 2:00 PM EST Office Visit Gynecology/Obstetr ics Eliecer Allen [address] [facility] [place] [address] Shira Cedeño CRNP [address] [place] [address] Nurse Alejandro Healthy Beginnings Return Anna [address] [facility] [place] [address] 10/02/2023 2:00 PM EST Hem/Onc Treatment Hematology/Oncolog y Treatment, [place] 200 [facility] [place] [address] Brandy, Chair 8 Hem Onc [address] [facility] [place], [place] [address] 10/06/2023 8:30 AM EST [facility] [address] [place] [address] Ivis Rodriguez MD [address] [place] [address] 10/08/2023 1:00 PM EST Office Visit Gynecology/Obstetr ics Eliecer Allen [address] [facility] [place] [address] Shira Cedeño CRNP [address] [place] [address] Allen, Non Stress Tests Anna [address] [place] [address] 10/08/2023 2:30 PM EST Imaging Maternal Medicine Imaging, [facility] [address] [place] [phone] 10/09/2023 2:00 PM EST Hem/Onc Treatment Hematology/Oncolog y Treatment, [place] [address] [facility] [address] [place], [place] [address] Brandy, Chair 9 Hem Onc [address] [address] 10/14/2023 1:30 PM EST Office Visit Gynecology/Obstetr ics [facility] [place] [address] Shira Cedeño CRNP [address] [facility] [place] [address] AllenYessy Stress Tests [place] [address] [facility] [place] [address] 10/15/2023 12:00 PM EST Office Visit Hematology/Oncolog y [facility] 200 [facility], [place] [address] Majo Luong CRNP 400 [facility] [place] [address] 12/30/2023 1:40 PM EDT Office Visit Nutrition & Weight Management, [facility] [address] [place] [address] Delma Nunez PA-C [address] [place] [address] 03/30/2024 2:00 PM EDT Office Visit Nutrition & Weight Management, [facility] [address] [place] [address] Delma Nunez PA-C [address] [place] [address] Health Maintenance Due Date Last Done Comments Pneumococcal Vaccine: Pediatrics (0 to 5 Years) and At-Risk Patients (6 to 64 Years) (1 - PCV) 10/17/1989 HPV/Co-Test 10/17/2013 Depression Screening 11/21/2021 11/21/2020 COVID-19 Vaccine (2 - 2022-24 season) 2023 10/21/2020 Cervical Cancer Screening 05/17/2024 Pap Smear 05/17/2024 05/17/2021, 09/10, 09/22/2017, Additional history exists Diabetes Screening 06/30/2026 06/30/2023, 0 02/27/2023, 02/27/2023, Additional history exists DTaP,Tdap,and Td Vaccines [...] affecting , antepartum, single or unspecified fetus Gestational diabetes mellitus (GDM) in third trimester, gestational diabetes method of control unspecified 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
--- OUTSIDE RECORDS SUMMARY | 2023-10-19 07:45 | External Medical Summary | Summary of Care ---
Author Name Unknown Organization [facility] Address [address] [place] [address] Phone [phone] Care Team Providers Care Manager Fund Name Role Phone Samantha Wells DO Primary Care Provider [phone] Reason for Visit * Reason Comments Return Visit Encounter Details Date Type Department Care Team (Late st Contact Info) Description 09/30/2023 2:00 PM EST Office Visit Gynecology/Obstetri kendell lAlen [address] [facility] [place] [address] Shira Cedeño CRNP [address] [facility] [place] [address] Nurse Tiago Allen Beginnings Return Anna [address] [place] [address] High-risk in third trimester*; Multigravida of advanced [...] Gestational diabetes mellitus (GDM) in third tri [facility] 08/19/2023 Overview: Diagnosed based on abnormal finger [...] resolved Need for food assistance referred to [facility] and local food marie 03/17/2023 [...] of an eating disorder, pt seeing a switchboard operator receptionist . 04/26/2015 Adrianna Zeng RN Nausea and [...] History of anxiety, feelings of anxiety at [facility] r/t vomiting. Monitor through Depression 04/27/2012 [...] Dates Next Due Covid-19 Ad26, Single Dose (INTTRA/J&J) 021 HEP A - Hepatitis A (Adult [...] money to get more. Never true 03/17/2023 [place] Depression Scale Answer Date Recorded [place] Depression Scale Total 9 09/23/2023 The thought [...] time of delivery. IOL scheduled for 10/19/23. Environmental Issues Instructor Documentation Provider requested physical education professor. Name of physical education professor: JAMIA Price * Claire Craft LPN - 09/30/2023 2:09 PM EST 36w6d Gbs today documented in this encounter Plan of Treatment Upcoming Encounters Date Type Department Care Team (Late st Contact Info) Description 10/02/2023 2:00 PM EST Hem/Onc Treatment Hematology/Oncology Treatment, [place] [address] [place] [address] Brandy, Chair 8 Hem Onc [facility] [address] 10/08/2023 1:00 PM EST Office Visit Gynecology/Obstetrics [facility] [address] [place] [address] Shira Cedeño CRNP [address] [place] [address] Alejandro, Non Stress Tests Anna [address] [place] [address] 10/08/2023 2:30 PM EST Imaging Maternal Medicine Imaging, Anna Allen [facility] [place] [phone] 10/09/2023 2:00 PM EST Hem/Onc Treatment Hematology/Oncology Treatment, [place] [address] [place] [phone] Brandy, Chair 9 Hem Onc [facility] 200 [place] [address] 10/14/2023 1:30 PM EST Office Visit Gynecology/Obstetrics Eliecer Allen [address] [facility] [place] [address] Shira Cedeño CRNP 132 [facility] [place] [address] Allen, Non Stress Tests Anna [facility] [address] 11/05/2023 1:00 PM EDT Telemedicine Psychiatry, [place] [address] [place] [address] Ivis Rodriguez MD [address] [place] [address] 11/09/2023 1:00 PM EDT Laboratory Laboratory [facility] [place] [address] [place] [address] Brandy, Lab [facility] [address] [facility] [place] [address] 11/24/2023 2:00 PM EDT Office Visit Hematology/Oncology [facility] [place] [address] [place] [address] Majo Luong CRNP [address] [place] [address] 12/30/2023 1:40 PM EDT Office Visit Nutrition & Weight Management, [facility] [address] [place] [address] Delma Nunez PA-C [address] [place] [address] 03/30/2024 2:00 PM EDT Office Visit Nutrition & Weight Management, [facility] [address] [place] [address] Delma Nunez PA-C [address] [place] [address] Scheduled Orders Name Type Priority Associated Diagnoses Orde r Schedule GROUP B STREP CULTURE/PCR Lab Routine High-risk in third trimester Expected: 09/30/2023, Expires: 09/30/2024 Health Maintenance Due Date Last Done Comments Pneumococcal Vaccine: Pediatrics (0 to 5 Years) and At-Risk Patients (6 to 64 Years) (1 of 2 - PCV) 10/17/1989 HPV/Co-Test 10/17/2013 Depression Screening 11/21/2021 11/21/2020 COVID-19 Vaccine ( season) 2023 10/21/2020 Cervical Cancer Screening 05/17/2024 [...] melissa occurred with: Not Discussed Care Teams Manager Fund Relationship Specialty Start Date End Date Samantha Wells DO [address] [place] [address] PCP - General Family Medicine 11/21/20 documented as of this encounter
--- OUTSIDE RECORDS SUMMARY | 2023-10-19 07:45 | External Medical Summary | Summary of Care ---
Author Name Unknown Organization [facility] Address [address] [place] [address] Phone [phone] Care Team Providers Care Counter Sales Person Name Role Phone Samantha Wells DO Primary Care Provider [phone] Reason for Visit * Reason Onset Date Comments Appointment 09/24/2023 Encounter Details Date Type Department Care Team (Late st Contact Info) Description 09/24/2023 Telephone Psychiatry, [place] [address] [place] [address] Services, [facility] [address] [place] [address] Appointment Allergies No known active allergiesdocumented as of this encounter (statuses as of 09/24/2023) Medications Medication Sig Dispensed Refills Start Date [...] after breakfast, lunch, and dinner). 200 Each 08/24/2023 Active Promethazine HCl 25 MG Oral [...] as of this encounter (statuses as of 09/24/2023) Active Problems Patient Care Coordination No te [...] resolved Need for food assistance referred to [facility] and local food marie 03/17/2023 Jackie Hartman [...] as of this encounter (statuses as of 09/24/2023) Resolved Problems Problem Noted Date Diagnosed Date [...] of an eating disorder, pt seeing a fresh work inspector . 04/26/2015 Adrianna Zeng RN Nausea and [...] info and rx for breast pump to [facility] for pt 10/09/2015 Adrianna Zeng [...] Overview: Patient given flu vaccine. 09/14/2012 Cara Cunningham, RN Urine culture contaminated at [facility] visit, [...] as of this encounter (statuses as of 09/24/2023) Immunizations Name Administration Dates Next Due Covid-19 [...] money to get more. Never true 03/17/2023 [place] Depression Scale Answer Date Recorded [place] Depression Scale Total 9 09/23/2023 The thought [...] No 03/06/2022 documented as of this encounter Miscellaneous Notes * Telephone Encounter - Ana Valdivia OSA - 09/24/2023 7:02 AM EST LMOM to schedule return with Ivis Rodriguez per appt request. documented in this encounter Plan of Treatment Upcoming Encounters Date Type Department Care Team (Late st Contact Info) Description 09/25/2023 2:15 PM EST Hem/Onc Treatment Hematology/Oncology Treatment, [place] [address] [place] [address] Brandy, Chair 1 Hem Onc [place] [facility] [address] 09/30/2023 2:00 PM EST Office Visit Gynecology/Obstetric s [facility] [place] [address] [place] [address] Shira Cedeño CRNP [address] [place] [address] Nurse Alejandro Healthy Beginnings Return Anna [address] [place] [address] 10/02/2023 2:00 PM EST Hem/Onc Treatment Hematology/Oncology Treatment, [place] 200 [facility] [place] [address] Brandy, Chair 8 Hem Onc [facility] 200 [facility], [place] [address] 10/08/2023 1:00 PM EST Office Visit Gynecology/Obstetric s Eliecer Benítezs [address] [place] [address] Shira Cedeño CRNP [address] [place] [address] Yessy Allen Stress Tests Anna [address] [place] [address] 10/08/2023 2:30 PM EST Imaging Maternal Medicine Imaging, Anna Allen [address] [place] [phone] 10/09/2023 2:00 PM EST Hem/Onc Treatment Hematology/Oncology Treatment, [place] 200 [facility] [place] [address] Brandy, Chair 9 Hem Onc [facility] 200 [facility] [place] [place] [address] 10/14/2023 1:30 PM EST Office Visit Gynecology/Obstetric s [facility] [place] [address] [place] [address] Shira Cedeño CRNP [address] [place] [address] [facility], Non Stress Tests [facility] [address] [place] [address] 10/15/2023 12:00 PM EST Office Visit Hematology/Oncology [facility] [address] [facility] [address] Majo Luong CRNP 400 [facility] [place] [address] 12/30/2023 1:40 PM EDT Office Visit Nutrition & Weight Management, [facility] 132 [place] [address] Delma Nunez PA-C 132 [place] [address] 03/30/2024 2:00 PM EDT Office Visit Nutrition & Weight Management, [facility] 132 [place] [address] Delma Nunez PA-C [address] [place] [address] Health Maintenance Due Date Last Done Comments [...] Not on filedocumented as of this encounter Advance Directives Latest Code Status [...] melissa occurred with: Not Discussed Care Teams Counter Sales Person Relationship Specialty Start Date End Date Samantha Wells DO 132 [place] [address] PCP - General Family Medicine 11/21/20 documented as of this encounter
--- OUTSIDE RECORDS SUMMARY | 2023-10-19 07:45 | External Medical Summary | Summary of Care ---
Author Name Unknown Organization [facility] Address [address] [place] [address] Phone [phone] Care Team Providers Care Erp Technical Lead Name Role Phone Samantha Wells DO Primary Care Provider [phone] Reason for Visit * Reason Comments Return Visit Encounter Details Date Type Department Care Team (Late st Contact Info) Description 09/30/2023 2:00 PM EST Office Visit Gynecology/Obstetri kendell Allen [address] [facility] [place] [address] Shira Cedeño CRNP [address] [facility] [place] [address] Nurse Tiago Allen Beginnings Return Anna [address] [place] [address] High-risk in third trimester*; Multigravida of advanced [...] Gestational diabetes mellitus (GDM) in third tri [facility] 08/19/2023 Overview: Diagnosed based on abnormal finger [...] resolved Need for food assistance referred to [facility] and local food marie 03/17/2023 Jackie Hartman [...] of an eating disorder, pt seeing a automatic lathe setter . 04/26/2015 Adrianna Zeng RN Nausea and [...] info and rx for breast pump to [facility] for pt 10/09/2015 Adrianna Zeng [...] History of anxiety, feelings of anxiety at [facility] r/t vomiting. Monitor through Depression [...] Dates Next Due Covid-19 Ad26, Single Dose ([employer]/J&J) 021 HEP A - Hepatitis A (Adult [...] money to get more. Never true 03/17/2023 [place] Depression Scale Answer Date Recorded [place] Depression Scale Total 9 09/23/2023 The thought [...] time of delivery. IOL scheduled for 10/19/23. Flow Match Sofa Cutter Documentation Provider requested surveyor helper rod. Name of surveyor helper rod: JAMIA Price * Claire Craft LPN - 09/30/2023 2:09 PM EST 36w6d Gbs today documented in this encounter Plan of Treatment Upcoming Encounters Date Type Department Care Team (Late st Contact Info) Description 10/02/2023 2:00 PM EST Hem/Onc Treatment Hematology/Oncology Treatment, [place] [address] [place] [address] Brandy, Chair 8 Hem Onc [facility] [address] 10/08/2023 1:00 PM EST Office Visit Gynecology/Obstetrics [facility] [address] [place] [address] Shira Cedeño CRNP [address] [place] [address] Alejandro, Non Stress Tests Anna [address] [facility] [address] 10/08/2023 2:30 PM EST Imaging Maternal Medicine Imaging, Anna Allen [facility] [place] [phone] 10/09/2023 2:00 PM EST Hem/Onc Treatment Hematology/Oncology Treatment, [place] [address] [place] [phone] Brandy, Chair 9 Hem Onc [facility] 200 [facility] [place] [address] 10/14/2023 1:30 PM EST Office Visit Gynecology/Obstetrics [facility]iecer Allen [facility] [place] [address] Shira Cedeño CRNP [address] [facility] [place] [address] Allen, Non Stress Tests [facility] [address] 11/05/2023 1:00 PM EDT Telemedicine Psychiatry, [place] [address] [place] [address] Ivis Rodriguez MD [address] [place] [address] 11/09/2023 1:00 PM EDT Laboratory Laboratory [facility] [place] [address] [place] [address] Brandy, Lab [facility] [address] [facility] [place] [address] 11/24/2023 2:00 PM EDT Office Visit Hematology/Oncology [facility] [place] [address] [place] [phone] Majo Luong CRNP [address] [address] 12/30/2023 1:40 PM EDT Office Visit Nutrition & Weight Management, [facility] [address] [place] [address] Delma Nunez PA-C [address] [place] [address] 03/30/2024 2:00 PM EDT Office Visit Nutrition & Weight Management, [facility] [address] [place] [address] Delma Nunez PA-C [address] [place] [address] Scheduled Orders Name Type Priority Associated Diagnoses [...] melissa occurred with: Not Discussed Care Teams Erp Technical Lead Relationship Specialty Start Date End Date Samantha Wells DO [address] [place] [address] PCP - General Family Medicine 11/21/20 documented as of this encounter
--- OUTSIDE RECORDS SUMMARY | 2023-10-19 07:45 | External Medical Summary | Summary of Care ---
Author Name Unknown Organization [facility] Address [address] [place] [address] Phone [phone] Care Team Providers Care Obstetric Assistant Name Role Phone Samantha Wells DO Primary Care Provider [phone] Reason for Visit * Reason Comments IV Therapy Venofer 3/ Encounter Details Date Type Department Care Team (Latest Contact Info) Description 10/02/2023 2:00 PM EST Hem/Onc Treatment Hematology/Oncology Treatment, [place] [address] [place] [address] Brandy, Chair 8 Hem Onc [place] [address] [place] [address] Anemia during in third trimester*; Status post bariatric surgery; Iron deficiency Allergies No known active allergiesdocumented as of this encounter (statuses as of 10/02/2023) Medications Medication Sig Dispensed Refills Start Date [...] as of this encounter (statuses as of 10/02/2023) Active Problems Patient Care Coordination No te [...] 09/10/23-stable 09/17/23-stable 09/22/23: RPM Stable 10/01/23- stable Last Assessment & Plan: Working with [employer]. [...] resolved Need for food assistance referred to [facility] and local food marie 03/17/2023 Jackie [...] as of this encounter (statuses as of 10/02/2023) Resolved Problems Problem Noted Date Diagnosed Date [...] of an eating disorder, pt seeing a laboratory veterinarian . 04/26/2015 Adrianna Zeng RN Nausea and [...] info and rx for breast pump to [facility] for pt 10/09/2015 Adrianna Zeng RN [...] as of this encounter (statuses as of 10/02/2023) Immunizations Name Administration Dates Next Due Covid-19 Ad26, Single Dose ([employer]@ [employer]) 021 HEP A - Hepatitis A (Adult [...] money to get more. Never true 03/17/2023 [place] Depression Scale Answer Date Recorded [place] Depression Scale Total 9 09/23/2023 The thought [...] Sign Reading Time Taken Comments Blood Pressure 112/71 10/02/2023 2:10 PM EST Pulse 84 10/02/2023 2:10 PM EST Temperature 36.4 C (97.5 F) 10/02/2023 2:10 PM ES T Respiratory Rate 16 10/02/2023 2:10 PM EST Oxygen Saturation 96% 10/02/2023 2:10 PM EST Inhaled Oxygen Concentration - - Weight - [...] as of this encounter Nursing Notes * Alice Ponce RN - 10/02/2023 4:10 PM EST Goals: Patient will remain free from injury. Possible barriers to meeting goals: ambulating with IV pole Stability of the patient: Moderately stable - low risk of patient condition declining or worsening Summary regarding today's goals: Met: pt remained free of harm today Patient tolerated treatment well without any acute issues or problems. Patient left facility in stable condition and denied any further needs. * Alice Ponce RN - 10/02/2023 2:44 PM EST Chair 4. IV inserted. Patient here for Venofer 10/11. Tolerating well, no issues or problems. Safety and Risk for Injury Patient will remain free from injury. Ensure appropriate safety devices are available. Provide and maintain safe environment. documented in this encounter Plan of Treatment Upcoming Encounters Date Type Department Care Team (Late st Contact Info) Description 10/08/2023 1:00 PM EST Office Visit Gynecology/Obstetrics Eliecer Allen [address] [place] [address] Shira Cedeño CRNP [address] [place] [address] Yessy Allen Stress Tests Anna [place] [address] 10/08/2023 2:30 PM EST Imaging Maternal Medicine Imaging, Anna lAlen [address] [place] [phone] 10/09/2023 2:00 PM EST Hem/Onc Treatment Hematology/Oncology Treatment, [place] [address] [place] [phone] Brandy Chair 9 Hem Onc [place] [address] [facility] [address] 10/14/2023 1:30 PM EST Office Visit Gynecology/Obstetrics Eliecer lAlen [address] [place] [address] Shira Cedeño CRNP [address] [place] [address] Yessy Allen Stress Tests Anna [address] [place], [place] [address] 11/05/2023 1:00 PM EDT Telemedicine Psychiatry, [place] [address] [place] [address] Ivis Rodriguez MD [address] [place] [address] 11/09/2023 1:00 PM EDT Laboratory Laboratory [facility] [address] [place] [phone] [facility] [address] [place] [address] 11/24/2023 2:00 PM EDT Office Visit Hematology/Oncology [facility] [address] [place] [address] Majo Luong CRNP [address] [place] [address] 12/30/2023 1:40 PM EDT Office Visit Nutrition & Weight Management, [facility] [place] [address] Delma Nunez PA-C [facility] [place] [address] 03/30/2024 2:00 PM EDT Office Visit Nutrition & Weight Management, [facility] [address] [place] [address] Delma Nunez PA-C [address] [facility] [place] [address] Health Maintenance Due Date Last Done Comments [...] ONCE PRN Other, Hypersensitivity Reaction, Starting on 10/02/23 at 1433, Until 10/03/23 at 1432, For 24 hours EPINEPHrine 1 MG/ML inj 0.3 mg 0.3 mg, Intramuscular, ONCE PRN Other, Hypersensitivity Reaction or Anaphylaxis, Starting on 10/02/23 at 1433, Until 10/03/23 at 1432, For 24 hours hEParin 100 UNIT/ML Lock Flush inj 500 Units 500 Units (5 mL), IV Lock, PRN Other, IV Flush, Starting on Thu10/02/23 at 1433, Until 10/03/23 at 1432, For 24 hours, Do not flush if lock, PICC, or central line not in place; IV infusing or unable to flush. Hydrocortisone Sod Suc (PF) (Solu-Cortef) inj 100 mg 100 mg, IV Push, ONCE PRN Other, Hypersensitivity Reaction, Starting on Thu10/02/23 at 1433, Until 10/03/23 at 1432, For 24 hours NSS infusion 500 mL, Intravenous, at 50 mL/hr, CONTINUOUS, Starting on Thu10/02/23 at 1545, Until 10/03/23 at 0144 Start Infusion 10/02/2023 2:33 PM EST 500 mL 50 mL/hr oxygen GAS Inhalation, OXYGEN, First dose on Thu10/02/23 at 1600, Until Discontinued, Device/Managed by: Low [...] is greater than or equal to 93% sodium chloride 0.9 % flush central line 10 mL 10 mL, IV Push, PRN Other, IV Flush, Starting on Thu10/02/23 at 1433, Until 10/03/23 at 1432, For 24 hours, Do not flush if lock, PICC, or central line not in place; IV infusing or unable to flush. Inactive Administered Medications - up to 3 most recent administrations Medication Order MAR Action Action Date Dose Rate Site Iron Sucrose (Venofer) 300 mg in NSS 250 mL ivpb 300 mg, IV Piggyback, ONCE, 1 dose, On Thu10/02/23 at 1615, Administer over 90 Minutes Start Infusion 10/02/2023 2:35 PM EST 300 mg 166.67 mL/hr documented [...] melissa occurred with: Not Discussed Care Teams Obstetric Assistant Relationship Specialty Start Date End Date Samantha Wells DO [address] [place] [address] PCP - General Family Medicine 11/21/20 documented as of this encounter
--- OUTSIDE RECORDS SUMMARY | 2023-10-19 07:45 | External Medical Summary | Summary of Care ---
Author Name Unknown Organization [facility] Address [address] [place] [address] Phone [phone] Care Team Providers Care Forest Aide Name Role Phone Samantha Wells DO Primary Care Provider [phone] Reason for Visit * Reason Comments Return Visit Encounter Details Date Type Department Care Team (Late st Contact Info) Description 09/23/2023 1:30 PM EST Office Visit Gynecology/Obstetri kendell Allen [address] [facility] [place] [address] Makenzie Jerome CRNP [address] [place] [address] Nurse Tiago Allen [facility] Return Anna [address] [facility] [place] [address] High-risk in third trimester*; Multigravida of advanced maternal age in third trimester; Medication exposure during first trimester of ; Anxiety during ; H/O precipitous labor and deliveries, antepartum; Prothrombin mutation (HCC); 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 and local food marie 03/17/2023 Jackie [...] of an eating disorder, pt seeing a car salter . 04/26/2015 Adrianna Zeng RN Nausea and [...] info and rx for breast pump to [facility] for pt 10/09/2015 Adrianna Zeng RN [...] money to get more. Never true 03/17/2023 [place] Depression Scale Answer Date Recorded [place] Depression Scale Total 9 09/23/2023 The thought [...] Sign Reading Time Taken Comments Blood Pressure 104/62 09/23/2023 1:31 PM EST Pulse - - Temperature - - Respiratory Rate - - Oxygen Saturation - - Inhaled Oxygen Concentration - - Weight 76.2 kg (168 lb) 09/23/2023 1:31 PM EST Height - - Body Mass Index 30.73 09/10/2023 1:32 PM EST documented in this [...] as of this encounter Progress Notes * Makenzie Jerome CRNP - 09/23/2023 1:33 PM EST 35w6d Doing well, occasional ctx w/o pattern. No leaking/bleeding. Baby is moving well. Spouse is planning a vasectomy. Reporting blood sugar readings to [employer]. Sees M for growth scans. Rx for Valtrex for suppression provided. Will schedule IOL in 39th week. Discussed weekly NSTs at 38 weeks, will schedule these at check out. Receiving iron infusions for anemia. 1 week return JAMIA Carlson * Monica Webb LPN - 09/23/2023 1:32 PM EST 35w6d Denies vaginal bleeding/rom + movement ? Valtrex Would like to schedule IOL 39th week documented in this encounter Nursing Notes * Jackie Hartman RN - 09/23/2023 2:01 PM EST Patient seen by [facility] Beginning Molding Cutter. Patient denies any questions or concerns. have you cut down with your smoking n/a have you quit n/a have you seen a glass mould cleaner no have you seen a psychiatric social worker no are you receiving counseling no have you received dental care during your no are you enrolled in WIC yes do you receive food stamps or guillory assistance no documented in this encounter Plan of Treatment Upcoming Encounters Date Type Department Care Team (Late st Contact Info) Description 09/23/2023 2:10 PM EST Laboratory Laboratory, [facility] 132 [facility] [place] [phone] Alejandro Allen [facility] 132 [facility] [place] [address] Intestinal postoperative nonabsorption 09/25/2023 2:15 PM EST Hem/Onc Treatment Hematology/Oncolog y Treatment, [place] [address] [facility] [address] Brandy, Chair 1 Hem Onc [address] [place] [address] 09/30/2023 2:00 PM EST Office Visit Gynecology/Obstetr ics [facility] 132 [facility] [place] [address] Shira Cedeño CRNP 132 [facility] [place] [address] Nurse Alejandro Healthy Beginnings Return [facility] 132 [facility] [place] [address] 10/02/2023 2:00 PM EST Hem/Onc Treatment Hematology/Oncolog y Treatment, [place] [address] [facility] [address] Brandy, Chair 8 Hem Onc [address] [place] [address] 10/06/2023 8:30 AM EST Telemedicine Psychiatry, [place] [address] [place] [address] Ivis Rodriguez MD [address] [place] [address] 10/08/2023 1:00 PM EST Office Visit Gynecology/Obstetr ics Eliecer Allen [address] [place] [address] Shira Cedeño CRNP [address] [place] [address] Allen, Non Stress Tests Anna [address] [facility] [place] [address] 10/08/2023 2:30 PM EST Imaging Maternal Medicine Imaging, Anna Allen 132 [facility] [place] [phone] 10/09/2023 2:00 PM EST Hem/Onc Treatment Hematology/Oncolog y Treatment, [place] [address] [place] [address] Brandy, Chair 9 Hem Onc [place] [address] [place] [address] 10/14/2023 1:30 PM EST Office Visit Gynecology/Obstetr ics Eliecer Allen [address] [place] [address] Shira Cedeño CRNP [address] [place] [address] Alejandro, Non Stress Tests Anna [address] [place] [address] 10/15/2023 12:00 PM EST Office Visit Hematology/Oncolog y [place] [address] [place] [address] Majo Luong CRNP [address] [facility] [place] [address] 12/30/2023 1:40 PM EDT Office Visit Nutrition & Weight Management, [facility] [address] [place] [address] Delma Nunez PA-C [address] [place] [address] 03/30/2024 2:00 PM EDT Office Visit Nutrition & Weight Management, [facility] [address] [place] [address] Delma Nunez PA-C [address] [place] [address] Health Maintenance Due Date Last Done Comments Pneumococcal Vaccine: Pediatrics (0 to 5 Years) and At-Risk Patients (6 to 64 Years) (1 - PCV) 10/17/1989 HPV/Co-Test 10/17/2013 Depression Screening 11/21/2021 11/21/2020 COVID-19 Vaccine ( - 2022-24 season) 2023 10/21/2020 Cervical Cancer [...] Primary Multigravida of advanced maternal age in third trimester Medication exposure during first trimester of [...] trimester, gestational diabetes method of control unspecified Anemia during in third trimester 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
--- OUTSIDE RECORDS SUMMARY | 2023-10-19 07:45 | External Medical Summary ---
Author Name Unknown Address Unknown Organization K01:[facility] [place] [address] [address] [facility] [address] Laboratory Report Ordering Provider Test Date Status RAJ TRACY 09/30/2023 14:48:43 Final Observation Date Value Abnormality Reference (Units ) Status Streptococcus agalactiae DNA [Presence] in Specimen by FADUMO with probe detection 09/30/2023 14:48:43 Negative Negative Final No Group B Streptococcus det ected by culture-enhanced PCR (amplified probe).
The collection of vaginal/rectal swab specimen combinations (FDA approved specimen type) is optimal for the detection of Group B Streptococcus. Single source collection (vaginal only or rectal only) or alternate specimen sources may lead to false negative results. Performing Location [facility] [place] [address] [place] [address]
--- OUTSIDE RECORDS SUMMARY | 2023-10-19 07:45 | External Medical Summary | Summary of Care ---
Author Name Unknown Organization [facility] Address [address] [place] [address] Phone [phone] Care Team Providers Care Market Development Director Name Role Phone Samantha Wells DO Primary Care Provider [phone] Reason for Visit * Reason Comments IV Therapy Venofer 2/ Encounter Details Date Type Department Care Team (Latest Contact Info) Description 09/25/2023 2:15 PM EST Hem/Onc Treatment Hematology/Oncology Treatment, [place] [address] [place] [address] Brandy, Chair 1 Hem Onc [facility] [address] [place] [address] Anemia during in third trimester*; Status post bariatric surgery; Iron deficiency Allergies No known active allergiesdocumented as of this encounter (statuses as of 09/25/2023) Medications Medication Sig Dispensed Refills Start Date [...] as of this encounter (statuses as of 09/25/2023) Active Problems Patient Care Coordination No te [...] As patient is 40 or greater at KNENETH: Recommend surveillance with weekly NST at 36 [...] resolved Need for food assistance referred to [facility] and local food marie 03/17/2023 Jackie [...] as of this encounter (statuses as of 09/25/2023) Resolved Problems Problem Noted Date Diagnosed Date [...] of an eating disorder, pt seeing a ambulance driver . 04/26/2015 Adrianna Zeng RN Nausea [...] info and rx for breast pump to [facility] for pt 10/09/2015 Adrianna Zeng RN [...] as of this encounter (statuses as of 09/25/2023) Immunizations Name Administration Dates Next Due Covid-19 Ad26, Single Dose (ChatID/J&Intelen) 021 HEP A - Hepatitis A (Adult [...] money to get more. Never true 03/17/2023 [place] Depression Scale Answer Date Recorded [place] Depression Scale Total 9 09/23/2023 The thought [...] Sign Reading Time Taken Comments Blood Pressure 109/72 09/25/2023 2:15 PM EST Pulse 89 09/25/2023 2:15 PM EST Temperature 36.9 C (98.4 F) 09/25/2023 2:15 PM ES T Respiratory Rate 16 09/25/2023 2:15 PM EST Oxygen Saturation 97% 09/25/2023 2:15 PM EST Inhaled Oxygen Concentration - - [...] of this encounter Nursing Notes * Alice Ponce, RN - 09/25/2023 4:05 PM EST Chair 12. IV inserted. Patient here for Venofer 2/, tolerating well, no issues. Safety and Risk for Injury Patient will remain free from injury. Ensure appropriate safety devices are available. Provide and maintain safe environment. Goals: Patient will remain free from injury. Possible barriers to meeting goals: ambulating with IV pole Stability of the patient: Moderately stable - low risk of patient condition declining or worsening Summary regarding today's goals: Met: pt remained free of harm today Patient tolerated treatment well without any acute issues or problems. Patient left facility in stable condition and denied any further needs. documented in this encounter Plan of Treatment Upcoming Encounters Date Type Department Care Team (Late st Contact Info) Description 09/30/2023 2:00 PM EST Office Visit Gynecology/Obstetric s Eliecer Allen [address] [place] [address] Shira Cedeño CRNP [address] [place] [address] Nurse Alejandro Healthy Beginnings Return Anna [address] [place] [address] 10/02/2023 2:00 PM EST Hem/Onc Treatment Hematology/Oncology Treatment, [place] [address] [facility], [place] [address] Brandy, Chair 8 Hem Onc [place] [address] [place], [place] [address] 10/08/2023 1:00 PM EST Office Visit Gynecology/Obstetric s Eliecer Allen [address] [place] [address] Shira Cedeño CRNP [address] [place] [address] Yessy Allen Stress Tests Anna [address] [place] [address] 10/08/2023 2:30 PM EST Imaging [facility] 132 [facility] [place] [phone] 10/09/2023 2:00 PM EST Hem/Onc Treatment Hematology/Oncology Treatment, [place] [address] [place] [address] Brandy, Chair 9 Hem Onc [facility] 200 [facility] [place] [address] 10/14/2023 1:30 PM EST Office Visit Gynecology/Obstetric s [address] [place] [address] Shira Cedeño CRNP 132 [facility] [place] [address] Yessy Allen Stress Tests [address] [place] [address] 11/05/2023 1:00 PM EDT Telemedicine Psychiatry, [place] [address] [place] [address] Ivis Rodriguez MD [address] [place] [address] 11/09/2023 1:00 PM EDT Laboratory Laboratory [facility] Brandy [place] 200 [facility] [place] [phone] Brandy, Lab [facility] 200 [facility] [place] [address] 11/24/2023 2:00 PM EDT Office Visit Hematology/Oncology [facility] Brandy [place] 200 [facility] [place] [address] Majo Luong CRNP [facility] [place] [address] 12/30/2023 1:40 PM EDT Office Visit Nutrition & Weight Management, [facility] [place] 132 [facility] [place] [address] Delma Nunez PA-C [address] [place] [address] 03/30/2024 2:00 PM EDT Office Visit Nutrition & Weight Management, [facility] [address] [place] [address] Delma Nunez PA-C [address] [place] [address] Health Maintenance Due Date Last Done Comments [...] ONCE PRN Other, Hypersensitivity Reaction, Starting on Thu09/25/23 at 1431, Until 09/26/23 at 1430, For 24 hours EPINEPHrine 1 MG/ML inj 0.3 mg 0.3 mg, Intramuscular, ONCE PRN Other, Hypersensitivity Reaction or Anaphylaxis, Starting on Thu09/25/23 at 1431, Until 09/26/23 at 1430, For 24 hours hEParin 100 UNIT/ML Lock Flush inj 500 Units 500 Units (5 mL), IV Lock, PRN Other, IV Flush, Starting on Thu09/25/23 at 1431, Until 09/26/23 at 1430, For 24 hours, Do not flush if lock, PICC, or central line not in place; IV infusing or unable to flush. Hydrocortisone Sod Suc (PF) (Solu-Cortef) inj 100 mg 100 mg, IV Push, ONCE PRN Other, Hypersensitivity Reaction, Starting on Thu09/25/23 at 1431, Until 09/26/23 at 1430, For 24 hours NSS infusion 500 mL, Intravenous, at 50 mL/hr, CONTINUOUS, Starting on Thu09/25/23 at 1545, Until 09/26/23 at 0144 Start Infusion 09/25/2023 2:29 PM EST 500 mL 50 mL/hr oxygen GAS Inhalation, OXYGEN, First dose on Thu09/25/23 at 1600, Until Discontinued, Device/Managed by: Low [...] Push, PRN Other, IV Flush, Starting on Thu09/25/23 at 1431, Until 09/26/23 at 1430, For 24 hours, Do not flush if lock, PICC, or central line not in place; IV infusing or unable to flush. Inactive Administered Medications - up to 3 most recent administrations Medication Order MAR Action Action Date Dose Rate Site Iron Sucrose (Venofer) 300 mg in NSS 250 mL ivpb 300 mg, IV Piggyback, ONCE, 1 dose, On Thu09/25/23 at 1615, Administer over 90 Minutes Start Infusion 09/25/2023 2:29 PM EST 300 mg 166.67 mL/hr documented [...] melissa occurred with: Not Discussed Care Teams Market Development Director Relationship Specialty Start Date End Date Samantha Wells DO 132 [place] [address] PCP - General Family Medicine 11/21/20 documented as of this encounter
--- OUTSIDE RECORDS SUMMARY | 2023-10-19 07:45 | External Medical Summary | Summary of Care ---
Author Name Unknown Organization [facility] Address [address] [place] [address] Phone [phone] Care Team Providers Care Project Management Advisor Name Role Phone Samantha Wells DO Primary Care Provider [phone] Reason for Visit * Reason Comments Outpatient Testing Encounter Details Date Type Department Care Team (Late st Contact Info) Description 09/23/2023 2:10 PM EST Laboratory Laboratory, [facility] [address] [place] [phone] [facility] [address] [place] [address] Intestinal postoperative nonabsorption Allergies No known active allergiesdocumented as of [...] for food assistance referred to [facility] and local food marie 03/17/2023 Jackie [...] of an eating disorder, pt seeing a heel sprayer . 04/26/2015 Adrianna Zeng RN Nausea and [...] info and rx for breast pump to [facility] for pt 10/09/2015 Adrianna Zeng RN [...] Dates Next Due Covid-19 Ad26, Single Dose (Nonlinear Dynamics/J&VidaPak) 021 HEP A - Hepatitis A (Adult [...] Smoking Tobacco: Former Cigarettes 2 Q uit: 2014 Smokeless Tobacco: Never Comments:Socially smoked for about [...] money to get more. Never true 03/17/2023 [place] Depression Scale Answer Date Recorded [place] Depression Scale Total 9 09/23/2023 The thought [...] No 03/06/2022 documented as of this encounter Plan of Treatment Upcoming Encounters Date Type Department Care Team (Late st Contact Info) Description 09/25/2023 2:15 PM EST Hem/Onc Treatment Hematology/Oncology Treatment, [place] [address] [place] [address] [place], Chair 1 Hem Onc [place] [address] [place] [address] 09/30/2023 2:00 PM EST Office Visit Gynecology/Obstetric s Eliecer Allen [address] [place] [address] Shira Cedeño CRNP [address] [place] [address] Nurse Alejandro Healthy [facility] Return Anna [address] [place] [address] 10/02/2023 2:00 PM EST Hem/Onc Treatment Hematology/Oncology Treatment, [place] 200 [facility], [place] [address] Brandy, Chair 8 Hem Onc [facility] 200 [facility] [place] [address] 10/06/2023 8:30 AM EST Telemedicine Psychiatry, [place] [address] [place] [address] Ivis Rodriguez MD [address] [place] [address] 10/08/2023 1:00 PM EST Office Visit Gynecology/Obstetric s Marbinwalt Benítezs [address] [place] [address] Shira Cedeño CRNP [address] [place] [address] Yessy Allen Stress Tests Anna [address] [place] [address] 10/08/2023 2:30 PM EST Imaging Maternal Medicine Imaging, Anna Allen [address] [place] [phone] 10/09/2023 2:00 PM EST Hem/Onc Treatment Hematology/Oncology Treatment, [place] 200 [facility], [place] [address] Brandy, Chair 9 Hem Onc [facility] 200 [facility] [place] [address] 10/14/2023 1:30 PM EST Office Visit Gynecology/Obstetric s Thanhs Allen [address] [place] [address] Shira Cedeño CRNP [address] [place] [address] Yessy Allen Stress Tests Anna [facility] [place] [address] 10/15/2023 12:00 PM EST Office Visit Hematology/Oncology [facility] [address] Majo Luong CRNP 400 [facility] [place] [address] 12/30/2023 1:40 PM EDT Office Visit Nutrition & Weight Management, [facility] [address] [place] [address] Delma Nunez PA-C 132 [facility] [place] [address] 03/30/2024 2:00 PM EDT Office Visit Nutrition & Weight Management, [facility] [address] [place] [address] Delma Nunez PA-C 132 [facility] [place] [address] Pending Results Name Type Priority Associated Diagnoses Date /Time VITAMIN K Lab Routine Intestinal postoperative nonabsorption 09/23/2023 1:57 PM EST 25-HYDROXY VITAMIN D Lab Routine Intestinal postoperative nonabsorption 09/23/2023 1:57 PM EST PTH Lab Routine Intestinal postoperative nonabsorption 09/23/2023 1:57 PM EST MAGNESIUM Lab Routine Intestinal postoperative nonabsorption 09/23/2023 1:57 PM EST COMPREHENSIVE METABOLIC PANEL Lab Routine Intestinal postoperative nonabsorption 09/23/2023 1:57 PM EST VITAMIN A (RETINOL) Lab Routine Intestinal postoperative nonabsorption 09/23/2023 1:57 PM EST Health Maintenance Due Date Last Done Comments [...] as of this encounter Visit Diagnoses Diagnosis Intestinal postoperative nonabsorption Other and unspecified postsurgical [...] melissa occurred with: Not Discussed Care Teams Project Management Advisor Relationship Specialty Start Date End Date Samantha Wells DO [address] [place] [address] PCP - General Family Medicine 11/21/20 documented as of this encounter
--- OUTSIDE RECORDS SUMMARY | 2023-10-19 07:46 | External Medical Summary | Summary of Care ---
Author Name Unknown Organization [facility] Address [address] [place] [address] Phone [phone] Care Team Providers Care Bench Molder Name Role Phone Samantha Wells DO Primary Care Provider [phone] Encounter Details Date Type Department Care Team (Late st Contact Info) Description 09/21/2023 Telephone Gynecology/Obstetrics [facility] [address] [place] [address] Lionel Levy MD [address] [place] [address] Allergies No known active allergiesdocumented as of this encounter (statuses as of 09/21/2023) Medications Medication Sig Dispensed Refills Start Date [...] as of this encounter (statuses as of 09/21/2023) Active Problems Patient Care Coordination No te Formatting of this note is d ifferent from the original. Problem Action Taken Date entered Entered by Date resolved Problem Noted Date Diagnosed Date Iron deficiency 09/14/2023 Status post bariatric surgery 09/14/2023 Anemia during in third trimester 09/14 Gestational diabetes mellitus (GDM) in third tri mester 08/19/2023 Overview: Diagnosed based on abnormal finger sticks x 2 weeks; MFM referral placed Nutrition referral ordered; appt scheduled 09/15/2023 OneTouch Verio meter She reports her home blood glucose as following: DATE Fasting 1 hr after Breakfast 1 hr after Lunch 1 hr after Dinner 08/20/23 72 87 145 90 08/21/23 80 200 - does not recall what she had to eat 125 139 08/22/23 70 113 81 110 08/23/23 81 94 83 133 08/24/23 80 81 x x 08/24/23: MFM [facility] consult complete. Enrolled in Current [employer]. Instructions provided to report blood sugars each week for MFM review; continue diet controlled; request food diary 09/10/23-stable 09/17/23-stable Last Assessment & Plan: Working with [facility]. [...] resolved Need for food assistance referred to [facility] and local food marie 03/17/2023 Jackie Hartman [...] or questions 08/12/2023 Jackie Hartman RN 08/12/2023 Last Assessment & Plan: Problem Action Taken [...] as of this encounter (statuses as of 09/21/2023) Resolved Problems Problem Noted Date Diagnosed Date [...] an eating disorder, pt seeing a manager new product . 04/26/2015 Adrianna Zeng RN Nausea and [...] info and rx for breast pump to [facility] for pt 10/09/2015 Adrianna Zeng [...] as of this encounter (statuses as of 09/21/2023) Immunizations Name Administration Dates Next Due Covid-19 [...] money to get more. Never true 03/17/2023 [place] Depression Scale Answer Date Recorded [place] Depression Scale Total 6 07/31/2023 The thought of harming myself has occurred to me . Never 07/31/2023 Estimated Date of Delivery Comme nts Yes [...] encounter Miscellaneous Notes * Telephone Encounter - Natalia Nava RN - 09/21/2023 3:[address] Rangel, pt should go to L&D. Ana at L&D is aware. Pt is aware. * Telephone Encounter - Natalia Nava RN - 09/21/2023 3:44 PM EST Pt is doing her kick count for the last 2 hours but has only felt 6 movements and they have been light. She tried eating and drinking but no relief. Denies any pain. Denies any vaginal bleeding or ROM. [place] approximately [place]. Pt can be reached at [phone] documented in this encounter Plan of Treatment Upcoming Encounters Date Type Department Care Team (Late st Contact Info) Description 09/23/2023 1:30 PM EST Office Visit Gynecology/Obstetric s Eliecer Benítezs [address] [place], [place] [address] Makenzie Jerome CRNP [address] [place] [address] Nurse Alejandro Healthy [facility] Return Anna [address] [place], [place] [address] 09/25/2023 2:15 PM EST Hem/Onc Treatment Hematology/Oncology Treatment, [address] [place] [address] Brandy, Chair 1 Hem [address]c [address] [address] 09/30/2023 2:00 PM EST Office Visit Gynecology/Obstetric s Eliecer Allen [address] [place], [place] [address] Shira Cedeño CRNP [address] [place] [address] Nurse Alejandro Healthy [facility] Return Anna [address] [place], [place] [address] 10/02/2023 2:00 PM EST Hem/Onc Treatment Hematology/Oncology Treatment, [place] 200 [facility], [place] [address] Brandy, Chair 8 Hem On[facility] [address] [place] [address] [place] [address] 10/06/2023 8:30 AM EST Telemedicine Psychiatry, [place] [address] [place] [address] Ivis Rodriguez MD [address] [place] [address] 10/08/2023 1:15 PM EST Office Visit Gynecology/Obstetric s Eliecer Allen [address] [place] [address] Shira Cedeño CRNP [address] [place] [address] Nurse Alejandro Healthy Begin[facility] Return Anna [address] [place] [address] 10/08/2023 2:30 PM EST Imaging Maternal Medicine Imaging, Anna Benítezs [address] [place] [phone] 10/09/2023 2:00 PM EST Hem/Onc Treatment Hematology/Oncology Treatment, [place] 200 [place] [address] Brandy, Chair 9 Hem Onc [address], [place] [address] 10/14/2023 1:45 PM EST Office Visit Gynecology/Obstetric s Eliecer Allen [address] [place] [address] Shira Cedeño CRNP [address] [place] [address] Nurse Alejandro Healthy Begin[facility] Return Anna [address] [place] [address] 10/15/2023 12:00 PM EST Office Visit Hematology/Oncology [facility] 200 [place] [address] Majo Luong CRNP [address] [place] [address] [place] [address] 10/21/2023 8:15 AM EDT Office Visit Gynecology/Obstetric s Eliecer Allen [address] [place] [address] Makenzie Jerome CRNP [address] [place] [address] Nurse Alejandro Healthy Beginnings Return [facility] [address] [place] [address] 12/30/2023 1:40 PM EDT Office Visit Nutrition & Weight Management, [facility] [address] [place] [address] Delma Nunez PA-C [address] [place] [address] 03/30/2024 2:00 PM EDT Office Visit Nutrition & Weight Management, [facility] [address] [place] [address] Delma Nunez PA-C [address] [place] [address] Health Maintenance Due Date Last Done Comments [...] melissa occurred with: Not Discussed Care Teams Bench Molder Relationship Specialty Start Date End Date Samantha Wells DO [address] [place] [address] PCP - General Family Medicine 11/21/20 documented as of this encounter
--- OUTSIDE RECORDS SUMMARY | 2023-10-19 07:46 | External Medical Summary | Summary of Care ---
Author Name Unknown Organization [facility] Address [address] [place] [address] Phone [phone] Care Team Providers Care Designer And Patternmaker Name Role Phone Samantha Wells DO Primary Care Provider [phone] Reason for Visit * Reason Comments Return Visit Encounter Details Date Type Department Care Team (Late st Contact Info) Description 09/23/2023 1:30 PM EST Office Visit Gynecology/Obstetri kendell Allen [address] [facility] [place] [address] Makenzie Jerome CRNP [address] [place] [address] Nurse Tiago [facility] Beginnings Return Anna [address] [facility] [place] [address] High-risk in third trimester*; Multigravida of advanced [...] resolved Need for food assistance referred to [facility] and local food marie 03/17/2023 Jackie [...] of an eating disorder, pt seeing a green meat packer . 04/26/2015 Adrianna Zeng RN Nausea and [...] info and rx for breast pump to [facility] for pt 10/09/2015 Adrianna Zeng RN [...] Cara Cunningham RN Urine culture contaminated at [facility] visit, repeat next visit. Urine culture obtained 05/27-wnl Anxiety state 04/27/2012 01/12/2015 Overview: History of anxiety, feelings of anxiety at [facility] r/t vomiting. Monitor through Depression 04/27/2012 08/23/2019 [...] money to get more. Never true 03/17/2023 [place] Depression Scale Answer Date Recorded [place] Depression Scale Total 9 09/23/2023 The thought [...] Reporting blood sugar readings to [facility]. Sees MFM for growth scans. Rx for Valtrex for [...] IOL 39th week documented in this encounter Plan of Treatment Upcoming Encounters Date Type Department Care Team (Late st Contact Info) Description 09/25/2023 2:15 PM EST Hem/Onc Treatment Hematology/Oncology Treatment, [place] 200 [facility] [address] Brandy, Chair 1 Hem Onc [facility] 200 [facility] [address] 09/30/2023 2:00 PM EST Office Visit Gynecology/Obstetric s Eliecer Allen [address] [place] [address] Shira Cedeño CRNP [address] [place] [address] Nurse Alejandro Healthy Beginnings Return Anna [address] [place] [address] 10/02/2023 2:00 PM EST Hem/Onc Treatment Hematology/Oncology Treatment, [place] 200 [facility], [place] [address] Brandy, Chair 8 Hem Onc [facility] 200 [facility] [place], [place] [address] 10/06/2023 8:30 AM EST Telemedicine Psychiatry, [place] [address] [place] [address] Ivis Rodriguez MD [address] [place] [address] 10/08/2023 1:15 PM EST Office Visit Gynecology/Obstetric s Thanhs Allen [address] [place] [address] Shira Cedeño CRNP [address] [place] [address] Nurse Alejandro Healthy [facility]nings Return [place] [address] [place] [address] 10/08/2023 2:30 PM EST Imaging Maternal Medicine Imaging, Anna Benítezs [address] [place] [phone] 10/09/2023 2:00 PM EST Hem/Onc Treatment Hematology/Oncology Treatment, [address], [place] [address] Brandy, Chair 9 [facility] 200 [facility] [place], [place] [address] 10/14/2023 1:45 PM EST Office Visit Gynecology/Obstetric s [facility] [address] [place] [address] Shira Cedeño CRNP [address] [place] [address] Nurse Alejandro Healthy Beginnings Return Anna [address] [place] [address] 10/15/2023 12:00 PM EST Office Visit Hematology/Oncology [facility] [address] [facility] [address] [place] [address] Majo Luong CRNP 400 [facility] [place] [address] 10/21/2023 8:15 AM EDT Office Visit Gynecology/Obstetric s [facility] [address] [place] [address] Makenzie Jerome CRNP [address] [place] [address] Nurse Alejandro Healthy Beginnings Return [facility] [place] [address] 12/30/2023 1:40 PM EDT Office Visit Nutrition & Weight Management, [facility] [address] [place] [address] Delma Nunez PA-C [address] [place] [address] 03/30/2024 2:00 PM EDT Office Visit Nutrition & Weight Management, [facility] [address] [place] [address] Delma Nunez PA-C [address] [place] [address] Health Maintenance Due Date Last Done Comments Pneumococcal Vaccine: Pediatrics (0 to 5 Years) and At-Risk Patients (6 to 64 Years) (1 - PCV) 10/17/1989 HPV/Co-Test 10/17/2013 Depression Screening 11/21/2021 11/21/2020 COVID-19 Vaccine (2 - 2023-24 season) 2023 10/21/2020 Cervical Cancer Screening 05/17/2024 [...] melissa occurred with: Not Discussed Care Teams Designer And Patternmaker Relationship Specialty Start Date End Date Samantha Wells DO 132 [place] [address] PCP - General Family Medicine 11/21/20 documented as of this encounter
--- OUTSIDE RECORDS SUMMARY | 2023-10-19 07:46 | External Medical Summary | Summary of Care ---
Author Name Unknown Organization [facility] Address [address] [place] [address] Phone [phone] Care Team Providers Care Safety And Health Consultant Name Role Phone Samantha Wells DO Primary Care Provider [phone] Encounter Details Date Type Department Care Team (Latest Contact Info) Description 09/21/2023 1:20 PM EST Telemedicine Nutrition & Weight Management, [facility] [address] [place] [address] Delma Nunez PA-C [address] [place] [address] Intestinal postoperative nonabsorption* Allergies No known active allergiesdocumented as of [...] of an eating disorder, pt seeing a finish off operator . 04/26/2015 Adrianna Zeng RN Nausea and vomiting due to Nutrition Review 9 months booklet 04/26/2015 Adrianna Zeng RN Nutrition Provided due date letter for pt to attend [place] 04/26/2015 Adrianna Zeng RN Problem Action Taken Date entered Entered by Date resolved Current needs or questions Patient denies having any current needs or questions 05/24/2015 Cara Cunnignham RN 05/24/15 Problem Action Taken Date entered [...] info and rx for breast pump to [facility] for pt 10/09/2015 Adrianna Zeng [...] money to get more. Never true 03/17/2023 [place] Depression Scale Answer Date Recorded [place] Depression Scale Total 6 07/31/2023 The thought [...] as of this encounter Progress Notes * Delma Nunez PA-C - 09/21/2023 1:26 PM EST [facility] Post Gastric Bypass Patient location: HOME. I was in a hospital or clinic location. After connecting through televideo,patient was verified with two unique identifiers. 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 Methods to assure confidentiality were taken. Patient acknowledged consent and understanding of pr ivacy and security of the Telemedicine visit. The patient agreed to participate. 1.5 years post op There are no exam notes on file for this visit. Waist Circumference N/A Referring physician: DO Sandra Grewal Matti is a 37 year old female who presents in follow up to the comprehensive weight management clinic. HPI The patient is s/p laprascopic Gastric Bypass by Dr. Chanel on March 06, 2022. Initial consult 11/29/20 weight 208 BMI 37.87 - Weight at the time of the surgery 197 lbs - Today's weight: 168 lbs - Total weight loss of -44 lbs since surgery, and -55 lbs since initial weight in clinic - Patient's last follow up with GI/Nutrition was on 02/27/2023 weight 153 - The patient's weight has +15 lbs since the last visit Wt Readings from Last 5 Encounters: 09/10/23 77.2 kg (170 lb 3.2 oz) 08/26/23 72.7 kg (160 lb 3.2 oz) 08/12/23 73.9 kg (163 lb) 08/12/23 73.7 kg (162 lb 8 oz) 07/31/23 73.9 kg (163 lb) 09/21/23 -36 weeks -overall feeling pretty good, still being active -still having nausea, using zofran -diagnosed with gestational DM - diet controlled -getting weekly iron infusions until delivery 06/30/23 -24 weeks -still having some nausea -no vomiting x 2 weeks but used 2 phenergan today -eating more carbs recently d/t nausea -sometimes vomiting vitamins 02/27/23 -LMP 01/18/23 -positive test this week -some nausea, no vomiting 11/14/22 -8 m post op -Going to [place] -Biggest positive: don't think about food all the time, more intuitive with eating -Biggest challenge: some body dysmorphia, does work with a therapist, does not want to be judged 08/01/22 -5 months post op - feels like she is doing pretty well -will see her psychiatrist; anxiety is kind of bad right now -weight 140 Ritalin at 10mg now wellbutrin instant release 75mg once daily 05/07/22 -2 mo post op -overall doing ok but anxiety and depression mildly worse -feels better if she gets in some carbs -still exercising intensely 04/07/22 -1 month post op -had venofer last dose 03/04/22 per hematology -still has a bit of a cough but feeling a bit better since having COVID -up to 1-1.5 hours exercise currently-- worried about exercising too much. Sometimes she feels too tired to exercise but still pushes herself. 03/24/22 -no nvd -currently has COVID-- some fatigue and cough but otherwise feeling well -has been exercising a lot Current recommended meal plan: Stage 4: Describes typical diet history/24 hr recall Patient is getting 60 grams of protein a day. Getting 80-90g daily Patient is not getting 64 ounces of fluid a day. Activity Level: Light activity TYPE/DURATION: walking, some kick boxing Psychosocial Adjustment Issues: No, no Issues with body image, stress management, relationships and addiction transfer Alcohol Use: Rare use (<2 drinks per month) Tobacco Use: Never Substance Abuse: medical marijuana - stopped since being Past Medical History Hypertension: No Dyslipidemia: No Sleep Apnea: Yes, no treatment Diabetes: No GERD: No Patient Active Problem List Diagnosis Code Major depressive disorder, recurrent episode ([facility]) F33.9 DAMION (generalized anxiety disorder) F41.1 High-risk O09.90 History of positive PPD Z92.89 H/O bulimia nervosa Z86.59 H/O: substance abuse ([facility]) F19.11 Urge incontinence of urine N39.41 ADHD (attention deficit hyperactivity disorder), inattentive type F90.0 RLS (restless legs syndrome) G25.81 Family history of factor V deficiency Z83.2 Other iron deficiency anemias D50.8 Pre-operative examination Z01.818 SREEKANTH (obstructive sleep apnea) G47.33 S/P bariatric surgery Z98.84 Fatigue R53.83 Health counseling Z71.9 Multigravida of advanced maternal age in first trimester O09.521 Marijuana use during O99.320, F12.90 Medication exposure during first trimester of O09.891 Anxiety during O99.340, F41.9 H/O precipitous labor and deliveries, antepartum O09.219 History of eating disorder Z86.59 Prothrombin mutation (HCC) D68.52 Previous bariatric surgery complicating O99.840 cardiac anomaly affecting , antepartum O35.BXX0 Gestational diabetes mellitus (GDM) in third trimester O24.419 Iron deficiency E61.1 Status post bariatric surgery Z98.84 Anemia during in third trimester O99.013 Social Connections: Not on file Review of patient's allergies indicates: No Known Allergies Taking supplements as ordered for each of the following: Multivitamin- Target Brand Women's One A Day - BID - trying to get them in Calcium- Bariatric Fusion 1 TID Vitamin D- 2000 UT daily B12- every 1 monthly in our clinic Other - pre oni Current Outpatient Medications Medication Sig Dispense Refill Acetaminophen 500 MG Oral Tablet (Tylenol) take 2 tabs by mouth every 8 hours pain after surgery for 3 days (Patient not taking: Reported on 08/24/2023) 18 Tablet 0 Vitamin D 50 MCG (2000 UT) Oral Tablet Take 2,000 Units by mouth in the morning. Cyanocobalamin 1000 MCG/ML Injection Kit Inject 1,000 mcg into a large muscle every month 1 mL 11 19 29-1 MG Oral Tablet Chewable Take by mouth. Syringe Luer Lock 25G X 5/8" 3 ML For vitamin B12 injections 12 Each 0 Calcium Citrate-Vitamin D3 315-6.25 MG-MCG Oral Tablet Take by mouth. [employer] University[employer] Verio w/Device Kit Use as directed. For testing blood sugar 4 times daily. One fasting level in morning. And 3 additional levels 1 hour after each meal (breakfast, lunch, dinner). 1 Kit 0 OneTouch Verio In Vitro Strip (Glucose Blood) For testing blood sugar 4 times daily. One fasting level in morning. And 3 additional levels 1 hour after each meal (breakfast, lunch, dinner). 100 Strip0 Lancets For testing blood sugar 4 times daily. One fasting level in morning. And 3 additional levels 1 hour after each meal (breakfast, lunch, dinner). 100 Each 0 Breast Pump Pump daily while breast feeding (Patient not taking: Reported on 08/24/2023) 1 Each 0 OneTouch Verio In Vitro Strip (Glucose Blood) Monitor blood sugar four times daily (once fasting & 1 hour after breakfast, lunch, and dinner). 150 Strip 6 OneTouch Delica Lancets 33G Monitor blood sugar four times daily (once fasting & 1 hour after breakfast, lunch, and dinner). 200 Each 6 Promethazine HCl 25 MG Oral Tablet (Phenergan) Take 0.5 Tablets by mouth every 6 hours as needed for Nausea. 30 Tablet 0 No current facility-administered medications for this visit. Review of Systems: Review of Systems Gastrointestinal: Positive for nausea and vomiting. Negative for abdominal pain, constipation and diarrhea. All other systems reviewed and are negative. Physical Exam: LMP 01/18/2023 (Approximate) General: Patient awake alert and oriented. Patient is well appearing and in no acute distress. Skin: No rashes. HEENT: Head is atraumatic, normocephalic. EOMs intact Abdomen: Obese Neuro: No focal deficits Psych: Appropriate mood and affect. Assessment/Plan: S/P Gastric Bypass Surgery: Diet Will continue with current meal plan. Vitamins The patient will continue MVI, Calcium with Vitamin D, Vitamin D and Vitamin B12 Injections at homeonce a month Liver Biopsy: No Hepatology Referral: N/A Bariatric Episode Resolved (BPD/RYGB/VSG): not applicable PPI: Course of treatment completed. GOALS - aim for 60-80 grams of protein a day - aim for 64oz of fluids a day - continue to increase physical activity - continue the following vitamins for life: - Multivitamin - Calcium Citrate+Vitamin D3 1418-9676 mg calcium daily - B12 1000 mcg injections at least every 3mo -Vitamin D 3,000 IU total per day - Do NOT skip meals--eat small frequent meals/snacks throughout the day - Eat slowly--take 20-30 minutes for each meal - Chew food thoroughly to applesauce consistency Sandra was seen today for weight management. Diagnoses and all orders for this visit: Intestinal postoperative nonabsorption (Primary) -labs today -continue increased protein of 80gr per day -expected weight gain 15-25lbs -continue exercise -monthly B12 injections -continue vitamins until completion of breast feeding Binge eating -stable SREEKANTH on CPAP - had study and doesn't need CPAP anymore ! H/O bulimia nervosa Mild episode of recurrent major depressive disorder (HCC) -mood stable Medical marijuana use -has stopped since positive test ADHD (attention deficit hyperactivity disorder), inattentive type -stable Insulin resistance -will improve with weight loss The patient agreed to try the plan as discussed and return in 6 months . They were encouraged to call or send a patient portal message in the meantime with any questions or concerns prior to their next visit. I spent a total of 30 minutes on the date of service in preparation, delivery, and documentation ofthe care provided to Sandra Chino excluding any time spent in the performance of separately billed services. This included, but was not limited to, providing counseling about the benefits of weight loss, about their nutritional status, detailed explanations about calorie count, types of nutrients to choose,and composition of the meals. Motivational interview provided in order to prepare the patient to achieve future goals. Delma FREY, MPH [facility] (Anna Allen) documented in this encounter Plan of Treatment Upcoming Encounters Date Type Department Care Team (Late st Contact Info) Description 09/23/2023 1:30 PM EST Office Visit Gynecology/Obstetric s Eliecer Allen [address] [place] [address] Makenzie Jerome CRNP [address] [place] [address] Nurse Alejandro [facility] Return Anna [address] [place] [address] 09/25/2023 2:15 PM EST Hem/Onc Treatment Hematology/Oncology Treatment, [address] [place] [address] Brandy, Chair 1 Hem [address] [address] 09/30/2023 2:00 PM EST Office Visit Gynecology/Obstetric s Eliecer Allen [address] [place] [address] Shira Cedeño CRNP [address] [place] [address] Nurse Alejandro [facility] Return Anna [address] [place] [address] 10/02/2023 2:00 PM EST Hem/Onc Treatment Hematology/Oncology Treatment, [address] [place] [address] Brandy, Chair 8 Hem Onc [address] [place] [address] 10/06/2023 8:30 AM EST Telemedicine Psychiatry, [place] [address] [place] [address] Ivis Rodriguez MD [address] [place] [address] 10/08/2023 1:15 PM EST Office Visit Gynecology/Obstetric s Eliecer Allen [address] [place] [address] Shira Cedeño CRNP [address] [place] [address] Nurse Alejandro [facility] Return Anna [facility] [place] [address] 10/08/2023 2:30 PM EST Imaging Maternal Medicine Imaging, [facility] Ben[facility]tez[facility] [address] [facility] [place] [phone] 10/09/2023 2:00 PM EST Hem/Onc Treatment Hematology/Oncology Treatment, [place] [address] [place] [address] Brandy, Chair 9 Hem Onc [facility] [address] [facility] [place] [address] 10/14/2023 1:45 PM EST Office Visit Gynecology/Obstetric s Eliecer Allen [address] [place] [address] Shira Cedeño CRNP [address] [facility] [place] [address] Nurse Alejandro [facility] Return Anna [address] [facility] [place] [address] 10/15/2023 12:00 PM EST Office Visit Hematology/Oncology [facility] [address] [place] [address] Majo Luong CRNP [address] [place] [address] 10/21/2023 8:15 AM EDT Office Visit Gynecology/Obstetric s [facility] [address] [place] [address] BackerMakenzie CRNP [address] [place] [address] Nurse Alejandro [facility] Return [facility] [address] [place] [address] 12/30/2023 1:40 PM EDT Office Visit Nutrition & Weight Management, [facility] [address] [place] [address] Delma Nunez PA-C [address] [place] [address] 03/30/2024 2:00 PM EDT Office Visit Nutrition & Weight Management, [facility] [address] [place] [address] Delma Nunez PA-C [address] [place] [address] Scheduled Orders Name Type Priority Associated Diagnoses Orde r Schedule VITAMIN K Lab Routine Intestinal postoperative nonabsorption Expected: 09/21/2023 (Approximate), Expires: 09/21/2024 25-HYDROXY VITAMIN D Lab Routine Intestinal postoperative nonabsorption Expected: 09/21/2023, Expires: 09/21/2024 PTH Lab Routine Intestinal postoperative nonabsorption Expected: 09/21/2023, Expires: 09/21/2024 MAGNESIUM Lab Routine Intestinal postoperative nonabsorption Expected: 09/21/2023, Expires: 09/21/2024 COMPREHENSIVE METABOLIC PANEL Lab Routine Intestinal postoperative nonabsorption Expected: 09/21/2023, Expires: 09/21/2024 VITAMIN A (RETINOL) Lab Routine Intestinal postoperative nonabsorption Expected: 09/21/2023, Expires: 09/21/2024 Health Maintenance Due Date Last Done Comments [...] this encounter Visit Diagnoses Diagnosis Intestinal postoperative nonabsorption- Primary Other and unspecified postsurgical nonabsorption documented in [...] melissa occurred with: Not Discussed Care Teams Safety And Health Consultant Relationship Specialty Start Date End Date Samantha Wells DO [address] [facility] [place] [address] PCP - General Family Medicine 11/21/20 documented as of this encounter
--- OUTSIDE RECORDS SUMMARY | 2023-10-19 07:46 | External Medical Summary ---
Author Name Unknown Address Unknown Organization K01:[facility] - [address] [place] [address] Laboratory Report Ordering Provider Test Date Status ROLAND COHPRA 09/23/2023 13:57:51 Final Observation Date Value Abnormality Reference (Units ) Status Magnesium 09/23/2023 13:57:51 2.1 1.5-2.6 (m g/dL) Final Performing Location [facility] - [address] [place] [address]
--- OUTSIDE RECORDS SUMMARY | 2023-10-19 07:46 | External Medical Summary ---
Author Name Unknown Address Unknown Organization : Laboratory Report Ordering Provider Test Date Status ROLAND CHOPRA 09/23/2023 13:57:51 Final Observation Date Value Abnormality Reference (Units ) Status Vitamin K-1, level 09/23/2023 13:57:51 344 1 30-1500 (pg/mL) Final This test was developed and its analytical performance
characteristics have been determined by [employer]
[place]. It has
not been cleared or approved by the U.S. Food and Drug
Administration. This assay has been validated pursuant
to the CLIA regulations and is used for clinical
purposes.

Test Performed at:
[facility]
[address] [facility]
[place] [address]
Get Diane M.D., Ph.D.,Director of Laboratories Performing Location
--- OUTSIDE RECORDS SUMMARY | 2023-10-19 07:46 | External Medical Summary ---
Author Name Unknown Address Unknown Organization K01:LABORATORY [facility] - [address] [place] [address] Laboratory Report Ordering Provider Test Date Status ROLAND CHOPRA 09/23/2023 13:57:51 Final Observation Date Value Abnormality Reference (Units ) Status Parathyrin.intact [Mass/volume] in Serum or Plasma 09/23/2023 13:57:51 37 15-65 (pg/mL) Final Performing Location LABORATORY [facility] - [address] [place] [address]
--- OUTSIDE RECORDS SUMMARY | 2023-10-19 07:46 | External Medical Summary | Summary of Care ---
Author Name Unknown Organization [facility] Address [address] [place] [address] Phone [phone] Care Team Providers Care Wind Site Manager Name Role Phone Samantha Wells DO Primary Care Provider [phone] Reason for Visit * Reason Comments Return Visit Encounter Details Date Type Department Care Team (Late st Contact Info) Description 09/23/2023 1:30 PM EST Office Visit Gynecology/Obstetri kendell Allen [address] [facility] [place] [address] Makenzie Jerome CRNP [address] [place] [address] Nurse Tiago [facility] Return Anna [address] [place] [place] [address] High-risk in third trimester*; Multigravida of advanced [...] food assistance referred to [facility] and local food marie 03/17/2023 [...] of an eating disorder, 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 04/26/2015 Adrianna Zeng RN Nausea and [...] info and rx for breast pump to [facility] for pt 10/09/2015 Adrianna Zeng RN [...] Cara Cunningham RN Urine culture contaminated at [facility] visit, repeat next visit. Urine culture obtained 05/27-wnl Anxiety state 04/27/2012 01/12/2015 Overview: History of anxiety, feelings of anxiety at [facility] r/t vomiting. Monitor through Depression 04/27/2012 08/23/2019 [...] Dates Next Due Covid-19 Ad26, Single Dose (Bluwan/J&J) 021 HEP A - Hepatitis A (Adult [...] money to get more. Never true 03/17/2023 [place] Depression Scale Answer Date Recorded [place] Depression Scale Total 9 09/23/2023 The thought [...] 09/23/2023 2:01 PM EST Patient seen by [facility] [employer] Make Up Helper. Patient denies any questions or concerns. documented in this encounter Plan of Treatment Upcoming Encounters Date Type Department Care Team (Late st Contact Info) Description 09/23/2023 2:10 PM EST [facility] [address] [place] [phone] AllenAlejandro pros [address] [facility] [place] [address] Intestinal postoperative nonabsorption 09/25/2023 2:15 PM EST Hem/Onc Treatment Hematology/Oncolog y Treatment, [place] [address] [facility] [place] [address] Brandy, Chair 1 Hem Onc [address] [facility] [place] [address] 09/30/2023 2:00 PM EST Office Visit Gynecology/Obstetr ics [facility] [address] [place] [address] Shira Cedeño CRNP [address] [place] [address] Nurse Alejandro [facility] Return Anna [address] [place] [address] 10/02/2023 2:00 PM EST Hem/Onc Treatment Hematology/Oncolog y Treatment, [place] [address] [place] [address] Brandy, Chair 8 Hem Onc [facility] [address] [facility] [place], [place] [address] 10/06/2023 8:30 AM EST Telemedicine Psychiatry, [place] [address] [place] [address] Ivis Rodriguez MD [address], [place] [id number] 10/08/2023 1:00 PM EST Office Visit Gynecology/Obstetr ics [facility] [address] [place] [address] Shira Cedeño CRNP [address] [place] [address] Yessy Allen Stress Tests [facility] [address] [place] [address] 10/08/2023 2:30 PM EST Imaging Maternal Medicine Imaging, [facility] [address] [place] [phone] 10/09/2023 2:00 PM EST Hem/Onc Treatment Hematology/Oncolog y Treatment, [place] [address] [place], [place] [address] Brandy, Chair 9 Hem Onc [place] [address] [place] [address] 10/14/2023 1:30 PM EST Office Visit Gynecology/Obstetr ics [facility] [address] [place] [address] Shira Cedeño CRNP [address] [place] [address] Yessy Allen Stress Tests [facility] [address] [place] [address] 10/15/2023 12:00 PM EST Office Visit Hematology/Oncolog y Scenery [facility] [address] [place] [address] Majo Luong CRNP [address] [place] [address] [place] [address] 12/30/2023 1:40 PM EDT Office Visit Nutrition & Weight Management, [facility] [address] [place] [address] Delma Nunez PA-C [address] [place] [address] 03/30/2024 2:00 PM EDT Office Visit Nutrition & Weight Management, [facility] [address] [place] [address] Delma Nunez PA-C [address] [place] [address] Health Maintenance Due Date Last Done Comments [...] melissa occurred with: Not Discussed Care Teams Wind Site Manager Relationship Specialty Start Date End Date Samantha Wells DO [address] [facility] [place] [address] PCP - General Family Medicine 11/21/20 documented as of this encounter
--- OUTSIDE RECORDS SUMMARY | 2023-10-19 07:46 | External Medical Summary | Summary of Care ---
Author Name Unknown Organization [facility] Address [address] [place] [address] Phone [phone] Care Team Providers Care Skid Adzer Name Role Phone Samantha Wells DO Primary Care Provider [phone] Encounter Details Date Type Department Care Team (Late st Contact Info) Description 09/14/2023 Orders Only Hematology/Oncology [facility] [place] [address] [place] [address] Majo Luong CRNP [address] [place] [address] Allergies No known active allergiesdocumented as of this encounter (statuses as of 09/22/2023) Medications Medication Sig Dispensed Refills Start Date [...] as of this encounter (statuses as of 09/22/2023) Active Problems Patient Care Coordination No te [...] as of this encounter (statuses as of 09/22/2023) Resolved Problems Problem Noted Date Diagnosed Date [...] of an eating disorder, pt seeing a obgyn hospitalist physician . 04/26/2015 Adrianna Zeng RN Nausea and [...] rx for breast pump to [facility] for pt 10/09/2015 Adrianna Zeng RN 10/09/15 [...] as of this encounter (statuses as of 09/22/2023) Immunizations Name Administration Dates Next Due Covid-19 [...] money to get more. Never true 03/17/2023 [place] Depression Scale Answer Date Recorded [place] Depression Scale Total 6 07/31/2023 The thought [...] Eliecer Allen [address] [place] [address] Makenzie Jerome CRNP [address] [place] [address] Nurse Alejandro [facility] [address] [place] [address] 09/25/2023 2:15 PM EST Hem/Onc Treatment Hematology/Oncology Treatment, [place] [address] [facility] [place] [address] Brandy, Chair 1 Hem Onc Scene [address] [place] [address] 09/30/2023 2:00 PM EST Office Visit Gynecology/Obstetric s Eliecer Allen [address] [place] [address] Shira Cedeño CRNP [address] [place] [address] Nurse Alejandro [facility] Anna [address] [place] [address] 10/02/2023 2:00 PM EST Hem/Onc Treatment Hematology/Oncology Treatment, [place] [address] [place] [place] [address] Brandy, Chair 8 Hem Onc [facility] [address] [facility] [place] [address] 10/06/2023 8:30 AM EST Telemedicine Psychiatry, [place] [address] [place] [address] Ivis Rodriguez MD [address] [place] [address] 10/08/2023 1:15 PM EST Office Visit Gynecology/Obstetric s [facility] [address] [place] [address] Shira Cedeño CRNP [address] [place] [address] Nurse Alejandro [facility] [address] [place] [address] 10/08/2023 2:30 PM EST Imaging Maternal Medicine Imaging, [place] Allen [address] [place] [id number] 10/09/2023 2:00 PM EST Hem/Onc Treatment Hematology/Oncology Treatment, [place] [address] [facility] [place] [address] Brandy, Chair 9 Hem Onc [facility] 200 [place] [address] 10/14/2023 1:45 PM EST Office Visit Gynecology/Obstetric s [facility] [address] [place] [address] Shira Cedeño CRNP [address] [place] [address] Nurse Alejandro [facility] [place] 132 [facility] [place] [address] 10/15/2023 12:00 PM EST Office Visit Hematology/Oncology [facility] [place] 200 [place] [address] Majo Luong CRNP [address] [place] [address] 10/21/2023 8:15 AM EDT Office Visit Gynecology/Obstetric s [facility] [address] [place] [address] Makeznie Jerome CRNP [address] [facility] [place] [address] Nurse Alejandro [facility] Anna 132 [facility] [place] [address] 12/30/2023 1:40 PM EDT Office Visit Nutrition & Weight Management, [facility] [address] [place] [address] Delma Nunez PA-C [address] [place] [address] 03/30/2024 2:00 PM EDT Office Visit Nutrition & Weight Management, [facility] [address] [place] [address] Delma Nunez PA-C [address] [place] [address] Health Maintenance Due Date Last Done Comments [...] melissa occurred with: Not Discussed Care Teams Skid Adzer Relationship Specialty Start Date End Date Samantha Wells DO [address] [place] [address] PCP - General Family Medicine 11/21/20 documented as of this encounter
--- OUTSIDE RECORDS SUMMARY | 2023-10-19 07:46 | External Medical Summary ---
Author Name Unknown Address Unknown Organization : Laboratory Report Ordering Provider Test Date Status ROLAND CHOPRA 09/23/2023 13:57:51 Final Observation Date Value Abnormality Reference (Units ) Status Vitamin A, level 09/23/2023 13:57:51 26 Below low nor mal 38-98 (mcg/dL) Final Vitamin supplementation with in 24 hours prior to
blood draw may affect the accuracy of the results.
This test was developed and its analytical performance
characteristics have been determined by [facility] [place], [place]. It has
not been cleared or approved by the U.S. Food and Drug
Administration. This assay has been validated pursuant
to the CLIA regulations and is used for clinical
purposes.

Test Performed at:
[facility] [facility] [facility]
[address] [facility]
[place] [address]
Get Diane M.D., Ph.D.,Director of Laboratories Performing Location
--- OUTSIDE RECORDS SUMMARY | 2023-10-19 07:46 | External Medical Summary | Summary of Care ---
Author Name Unknown Organization [facility] Address [address] [place] [address] Phone [phone] Care Team Providers Care Construction Project Assistant Name Role Phone Samantha Wells DO Primary Care Provider [phone] Reason for Visit * Reason Onset Date Comments Forms Request 09/17/2023 Encounter Details Date Type Department Care Team (Late st Contact Info) Description 09/17/2023 Telephone Gynecology/Obstetrics [facility] [address] [place] [address] Jannie Collado PA-C [address] [place] [address] Forms Request Allergies No known active allergiesdocumented as of [...] resolved Need for food assistance referred to [facility] and local food marie 03/17/2023 [...] of an eating disorder, pt seeing a scrap drop operator . 04/26/2015 Adrianna Zeng RN Nausea [...] info and rx for breast pump to [facility] for pt 10/09/2015 Adrianna Zeng RN [...] money to get more. Never true 03/17/2023 [place] Depression Scale Answer Date Recorded [place] Depression Scale Total 6 07/31/2023 The thought [...] encounter Miscellaneous Notes * Telephone Encounter - Pat Marte OSA - 09/23/2023 9:40 AM EST Forms complete. Faxed spouse's to employer. Both forms ready for pickle cutter in triage. * Telephone Encounter - Pat Marte OSA - 09/18/2023 8:42 AM EST Forms completed. Placed on [facility]'s desk for signature. * Telephone Encounter - Jackie Hartman RN - 09/17/2023 2:39 PM EST See message r/e FMLA * Telephone Encounter - Mayra Ibrahim OSA - 09/17/2023 2:24 PM EST Patients [facility] calling regarding FMLA papers he dropped off to the office during Sandra's 09/10 appointment. FMLA papers for himself need to be faxed to his employer - [employer]. Fax number is [phone] documented in this encounter Plan of Treatment Upcoming Encounters Date Type Department Care Team (Late st Contact Info) Description 09/23/2023 1:30 PM EST Office Visit Gynecology/Obstetric [facility] Allen [address] [place] [address] Backer, JAMIA Monroe [address] [place] [address] Nurse Alejandro [facility] Anna [address] [place] [address] 09/25/2023 2:15 PM EST Hem/Onc Treatment Hematology/Oncology Treatment, [place] [address] [place] [address] Brandy, Chair 1 Hem Onc [facility] [address] [facility] [address] 09/30/2023 2:00 PM EST Office Visit Gynecology/Obstetric morteza Allen [address] [place] [address] Shira Cedeño CRNP [address] [place] [address] Nurse Alejandro [facility] Anna [address] [place] [address] 10/02/2023 2:00 PM EST Hem/Onc Treatment Hematology/Oncology Treatment, [place] 200 [place] [address] Brandy, Chair 8 Hem Onc [facility] [address] [facility] [place] [address] 10/06/2023 8:30 AM EST Telemedicine Psychiatry, [place] [address] [place] [address] Ivis Rodriguez MD [address] [place] [address] 10/08/2023 1:15 PM EST Office Visit Gynecology/Obstetric s [facility] [address] [place] [address] Shira Cedeño CRNP [address] [place] [address] Nurse Alejandro [facility] Anna [address] [place] [address] 10/08/2023 2:30 PM EST Imaging Maternal Medicine Imaging, [place] Allen [address] [place] [phone] 10/09/2023 2:00 PM EST Hem/Onc Treatment Hematology/Oncology Treatment, [place] [address] [place] [address] Brandy, Chair 9 Hem Onc [facility] [address] [facility] [place] [address] 10/14/2023 1:45 PM EST Office Visit Gynecology/Obstetric s [facility] [address] [place] [address] Shira Cedeño CRNP [address] [place] [address] Nurse Alejandro [facility] Anna [facility] [place] [address] 10/15/2023 12:00 PM EST Office Visit Hematology/Oncology [facility] [place] [facility] [address] Majo Luong CRNP [address] [place] [address] 10/21/2023 8:15 AM EDT Office Visit Gynecology/Obstetric s [facility] [address] [place] [address] Makenzie Jerome CRNP [address] [place] [address] Nurse Alejandro [facility] Anna [facility] [place] [address] 12/30/2023 1:40 PM EDT Office Visit Nutrition & Weight Management, [facility] [address] [place] [address] eDlma Nunez PA-C [address] [place] [address] 03/30/2024 2:00 PM EDT Office Visit Nutrition & Weight Management, [facility] [address] [place] [address] Delma Nunez PA-C [address] [place] [address] Health Maintenance Due Date Last Done Comments [...] melissa occurred with: Not Discussed Care Teams Construction Project Assistant Relationship Specialty Start Date End Date Samantha Wells DO [address] [place] [address] PCP - General Family Medicine 11/21/20 documented as of this encounter
--- OUTSIDE RECORDS SUMMARY | 2023-10-19 07:46 | External Medical Summary ---
Author Name Unknown Address Unknown Organization [facility] [address] [place] [address] Laboratory Report Ordering Provider Test Date Status ROLAND CHOPRA 09/23/2023 13:57:51 Final Observation Date Value Abnormality Reference (Units ) Status BUN 09/23/2023 13:57:51 9 6-20 (mg/dL) Final Creatinine 09/23/2023 13:57:51 0.5 0.5-1.0 (mg/dL) Final Glomerular filtration rate/1.73 sq M.predicted [Volume Rate/Area] in Serum, Plasma or Blood by Creatinine-based formula (CKD-EPI) 09/23/2023 13:57:51 >90 >=60 (mL/min) Final eGFR is calculated based on the CKD-EPI 2020 equation SODIUM 09/23/2023 13:57:51 137 135-146 (m mol/L) Final Potassium 09/23/2023 13:57:51 4.1 3.5-5.1 (m mol/L) Final Cl 09/23/2023 13:57:51 103 98-107 (mm ol/L) Final CO2 09/23/2023 13:57:51 19 Below low normal 22- 32 (mmol/L) Final Anion gap 09/23/2023 13:57:51 15 7-15 (mmol /L) Final Glucose 09/23/2023 13:57:51 66 Below low normal 70- 120 (mg/dL) Final Albumin 09/23/2023 13:57:51 3.6 Below low normal 3.8 -5.0 (g/dL) Final AST (Aspartate aminotransferase) 09/23/2023 13:57:51 35 10-35 (U/L) Fin al Alk Phos 09/23/2023 13:57:51 124 35-130 (U/ L) Final Bilirubin, Total 09/23/2023 13:57:51 0.2 <=1 .2 (mg/dL) Final Calcium 09/23/2023 13:57:51 8.7 8.4-10.2 ( mg/dL) Final Protein 09/23/2023 13:57:51 6.1 6.0-8.3 (g /dL) Final ALT (Alanine aminotransferase) 09/23/2023 13:57:51 24 10-35 (U/L) Kolby patterson Performing Location [facility] [place] [address] [facility] [address]
[2023-10-19] MEDS ORDERED: LIDOCAINE 1% LOCAL 20 ML VIAL INFIL PRN (08:10)
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
[2023-10-19 08:56] LABS: Hemoglobin 11.6 g/dl (12.0-16.0); Mean Corpuscular Hgb Conc 35.2 g/dL (32.0-36.0); Mean Platelet Volume 10.5 fL (9.4-12.4); Platelet Count 227 K/uL (130-400); RDW Coefficient of Variation 14.2 % (11.5-14.5); RDW Standard Deviation 48.7 fL (36.4-46.3); Red Blood Count 3.51 M/uL (4.20-5.40); White Blood Count 10.52 K/ul (4.8-10.8)
[2023-10-19 09:14] LABS: Albumin Globulin Ratio 1.4 (0.9-2); Albumin Level 3.6 gm/dl (3.4-5.0); BUN Creatinine Ratio 18.6 (10-20); Bilirubin,Total 0.3 mg/dl (0.2-1.0); Calcium 8.6 mg/dl (8.6-10.3); Creatinine Clr Calc Pharmacy 171.5 ml/min; Est GFR (African American) 147.5 ml/min; Est GFR (Non-African American) 127.2 ml/min; Globulin 2.6 gm/dl (2.5-4.0); Potassium 3.5 mmol/L (3.5-5.1); Total Protein 6.2 gm/dl (6.0-8.3)
[2023-10-19] MEDS: LACTATED RINGER'S 1,000 ML IV PRN (09:42)
[2023-10-19] MEDS: OXYTOCIN 30 UNITS/NSS 30 UNITS/500 ML BAG IV PRN ×2 (09:47→18:41)
[2023-10-19] MEDS: LACTATED RINGER'S 1,000 ML IV ONE (10:28)
--- NOTE | 2023-10-19 14:04 | Obstetrical Progress Note ---
Date of Service October 19, 2023 Assessment & Plan Admission and Anticipated Discharge Date Admission Date: October 19, 2023 Subjective Patient is reevaluated. She has been feeling contractions, every 3-4 min, and considering epidural VE; 3-4 cm/ 70%/ -1 Discussed AROM and increase Oxytocin, she desires epidural before AROM FHR categ I Continue to monitor closely. Results & Data Vital Signs (Past 12 Hours) Vital Signs Temp Pulse Resp BP 10/19/23 13:54 70 119/76 10/19/23 13:02 77 121/70 10/19/23 11:01 36.6 C 10/19/23 10:51 73 103/58 L 10/19/23 09:50 83 120/71 10/19/23 07:53 36.7 C 16 10/19/23 07:44 114 H 108/66
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
[2023-10-19] MEDS ORDERED: diphenhydrAMINE 50 MG/ML VIAL IV PRN (15:17)
[2023-10-19] MEDS ORDERED: NALOXONE HCL 0.4 MG/1 ML VIAL/CARP IV PRN (15:17)
[2023-10-19] MEDS ORDERED: ROPIVACAINE 0.5% PF 5 MG/ML 20 ML VIAL EPI PRN (15:17)
[2023-10-19] MEDS ORDERED: SODIUM CHLORIDE 0.9% PF INJ 10 ML VIAL EPI PRN (15:17)
[2023-10-19] MEDS ORDERED: LIDOCAINE 2% MPF LOCAL 5 ML VIAL EPI PRN (15:17)
[2023-10-19] MEDS ORDERED: NALOXONE HCL 1 MG in SODIUM CHLORIDE 0.9% 1,000 ML IV PRN (15:17)
[2023-10-19] MEDS ORDERED: ePHEDrine sulfate 50 MG/ML AMP IV PRN (15:17)
[2023-10-19] MEDS ORDERED: NALBUPHINE HCL 5 MG in SYRINGE 0 ML IV PRN (15:17)
[2023-10-19] MEDS: BUPIVACAINE 0.25% PF 30 ML VIAL EPI STA (15:23)
[2023-10-19] MEDS: LIDOCAINE 2%/EPINEPHRINE 1:200,000 20 ML PF EPI STA (15:23)
[2023-10-19] MEDS: fentaNYL citrate PF 100 MCG/2 ML VIAL EPI STA (15:23)
[2023-10-19] MEDS: fentANYL 2 MCG/ML BUPIVacaine 0.125%-NSS 100ML BAG EPI PRN (15:23)
[2023-10-19] MEDS: SODIUM CHLORIDE 0.9% PF INJ 10 ML VIAL EPI STA (15:23)
--- NOTE | 2023-10-19 16:28 | Obstetrical Progress Note ---
Date of Service October 19, 2023 Assessment & Plan Admission and Anticipated Discharge Date Admission Date: October 19, 2023 Subjective Patient is reevaluated, she has been comfortable, received epidural for pain FHR categ I [place] ctxs q 2-3 min, Oxytocin is at 14 miu/min VE; 4/ 70%/ -2, bulging bag, AROM'ed clear fluid Continue to monitor closely. Results & Data Vital Signs (Past 12 Hours) Vital Signs Temp Pulse Resp BP Pulse Ox 10/19/23 16:24 18 10/19/23 16:24 66 133/67 10/19/23 16:23 70 99 10/19/23 16:18 73 98/53 L 100 10/19/23 16:13 68 102/60 98 10/19/23 16:08 97 10/19/23 16:08 74 10/19/23 16:08 68 104/62 10/19/23 16:03 99 10/19/23 16:03 71 10/19/23 16:03 68 116/65 10/19/23 15:58 78 117/62 98 10/19/23 15:54 72 118/63 10/19/23 15:53 72 98 10/19/23 15:48 73 109/63 99 10/19/23 15:45 70 116/66 10/19/23 15:43 74 99 10/19/23 15:38 98 10/19/23 15:38 76 10/19/23 15:38 72 109/62 10/19/23 15:35 16 10/19/23 15:35 16 10/19/23 15:33 98 10/19/23 15:33 69 10/19/23 15:33 71 116/63 10/19/23 15:28 99 10/19/23 15:28 74 10/19/23 15:28 70 117/66 10/19/23 15:27 16 10/19/23 15:27 16 10/19/23 15:26 36.9 C 10/19/23 15:25 18 10/19/23 15:25 18 10/19/23 15:23 70 100 10/19/23 15:21 80 111/72 10/19/23 15:19 78 120/69 10/19/23 15:18 79 100 10/19/23 15:17 73 18 118/65 10/19/23 15:15 71 122/58 L 10/19/23 15:13 77 100 10/19/23 15:08 74 100 10/19/23 15:03 79 100 10/19/23 15:00 80 128/61 10/19/23 14:58 84 96 10/19/23 14:52 73 110/69 100 10/19/23 14:47 77 98 10/19/23 14:42 76 99 10/19/23 14:37 73 99 10/19/23 14:32 78 98 10/19/23 14:27 79 98 10/19/23 14:22 78 99 10/19/23 14:17 83 99 10/19/23 14:12 74 99 10/19/23 13:54 70 119/76 10/19/23 13:02 77 121/70 10/19/23 11:30 18 10/19/23 11:30 18 10/19/23 11:01 36.6 C 10/19/23 10:51 73 103/58 L 10/19/23 09:50 83 120/71 10/19/23 07:53 36.7 C 16 10/19/23 07:44 114 H 108/66
[2023-10-19] MEDS: ONDANSETRON INJ 2 MG/ML 2 ML VIAL IV PRN (17:00)
--- NOTE | 2023-10-19 17:34 | Anesthesia Procedure Note ---
Date of Service October 19, 2023 Anesthesia Epidural Re-Dose Vital Signs Temp Pulse Resp BP Pulse Ox 97.7 F 104 H 16 113/60 98 10/19/23 17:20 10/19/23 17:29 10/19/23 17:20 10/19/23 17:29 10/19/23 17:29 Notes Pain Intensity: 8 Dilatation (cm): 8.5 Effacement (%): 90 Called by nursing to evaluate epidural as the patient is having increased pain. The epidural was re-dosed with the following medications after negative aspiration of the epidural catheter for CSF/HEME. 5mL of 0.25% Bupivacaine and 75mcg of fentanyl After Epidural Re-Dose Mental Status: alert / awake / arousable Pain: improving with treatment Airway Patency, RR, SpO2: stable & adequate BP & HR: stable & adequate
[2023-10-19] MEDS: METHYLERGONOVINE MALEATE 0.2 MG/ML AMP IM ONE (18:18)
[2023-10-19] MEDS ORDERED: HYDROCORTISONE ACETATE 25 MG SUPP PR PRN (18:40)
[2023-10-19] MEDS ORDERED: oxyCODONE/ACETAMINOPHEN 5mg/325mg TAB PO PRN (18:40)
[2023-10-19] MEDS ORDERED: OXYTOCIN 30 UNITS/NSS 30 UNITS/500 ML BAG IV PRN (18:40)
--- NOTE | 2023-10-19 18:46 | Delivery Summary ---
Vaginal Delivery Summary Date of Service October 19, 2023 Vaginal Delivery Summary Procedure: Vaginal delivery with shoulder dystocia managed by delivery of posterior/ left arm and shoulder, repair of vaginal, labial and cervical lacerations. Patient was found to be fully dilated and desires to push. She pushed for about 10 min and delivered the head and then turtle sign was noted. There was a nuchal cordx1 and it was reduced. The bed was lowered down and patients legs were hyperflexed and then the posterior/ left shoulder was delivered with the left hand and arm with minimal traction. And the rest of the body was delivered without difficulty. The baby was handed off to the mother. The cord was clampedx2 and cut. The vagina and perineum were checked and found to have bilateral labial lacerations. Those were repaired with 3/0 Vicryl on SH needle. Then noted a laceration in posterior vaginal wall at about mid 1/3rd of vagina. It was repaired with 2/0 Vicryl. Rectal exam was done and noted good sphincter tone and mucosal integrity with no sutures. The gloves were changes. The placenta was delivered spontaneously as intact and complete. The uterus was explored and found to be empty. Then noted oozing on cervix at 11 to 2 o'clock position, it was repaired with 2/0 Vicryl. Excellent hemostasis was achieved. EBL was 300 ml. The fundus was firm The baby was a viable male infant, Apgars 8/9, the weight is pending The mother and the baby tolerated the procedure well. No complications happened and I was present during whole procedure.
[2023-10-19] MEDS: fentaNYL citrate PF 100 MCG/2 ML VIAL EPI PRN (18:49)
[2023-10-19] MEDS: BUPIVACAINE 0.25% PF 30 ML VIAL EPI PRN (18:49)
[2023-10-19] MEDS: fentaNYL citrate PF 100 MCG/2 ML VIAL ONE (19:04)
[2023-10-19] MEDS: ePHEDrine sulfate 50 MG/ML AMP ONE (19:04)
[2023-10-19] MEDS: MEASLES, MUMPS & RUBELLA VIRUS VACCINE (MMR) VIAL SQ ONE (19:05)
[2023-10-19] MEDS: BUPIVACAINE 0.25% PF 30 ML VIAL ONE (19:05)
[2023-10-19] MEDS: SODIUM CHLORIDE 0.9% PF INJ 10 ML VIAL ONE (19:05)
[2023-10-19] MEDS: LIDOCAINE 2%/EPINEPHRINE 1:200,000 20 ML PF ONE (19:05)
[2023-10-19] MEDS: fentANYL 2 MCG/ML BUPIVacaine 0.125%-NSS 100ML BAG ONE (19:05)
[2023-10-19] MEDS: DIPHTHER/TETAN/PERTUS Vaccine (Tdap, Adol/Adult) 0.5mL IM ONE (19:05)
[2023-10-19] MEDS: ceFAZolin 2000MG 2,000 MG/15 ML SYR IV STA (19:20)
--- NOTE | 2023-10-19 19:32 | Anesthesia Procedure Note ---
Date of Service October 19, 2023 Anesthesia Post Epidural Note Vital Signs Vital Signs: Temp Pulse Resp BP Pulse Ox 97.7 F 81 16 123/77 100 10/19/23 17:20 10/19/23 19:25 10/19/23 17:32 10/19/23 19:25 10/19/23 18:39 Pain Intensity Abdomen: Pain Intensity: 4 Notes Mental Status: alert / awake / arousable and participated in evaluation Nausea / Vomiting: adequately controlled Pain: adequately controlled Airway Patency, RR, SpO2: stable & adequate BP & HR: stable & adequate Hydration State: stable & adequate Neuraxial Anesthesia: was administered and sensory block is resolving Anesthetic Complications: no major complications apparent and Pt Satisfied with anesthetic care Epidural: Removed without complications and With tip intact
[2023-10-19] MEDS: DOCUSATE SODIUM 100 MG CAP PO SCH (21:58)
[2023-10-19] MEDS: IBUPROFEN 600 MG TAB PO PRN (21:59)
[2023-10-19] MEDS: BENZOCAINE 20% SPRY 85 APPLN/85 GM CAN EXT PRN (22:17)
[2023-10-20 06:31] LABS: Hematocrit (blood only) 29.8 % (37.0-47.0); Hemoglobin 10.2 g/dl (12.0-16.0); Mean Corpuscular Hemoglobin 32.9 pg (25.0-34.0); Mean Corpuscular Hgb Conc 34.2 g/dL (32.0-36.0); Mean Corpuscular Volume 96.1 fL (80.0-100.0); Mean Platelet Volume 10.3 fL (9.4-12.4); Platelet Count 197 K/uL (130-400); RDW Coefficient of Variation 14.4 % (11.5-14.5); RDW Standard Deviation 49.7 fL (36.4-46.3); White Blood Count 10.91 K/ul (4.8-10.8)
[2023-10-20] MEDS: PRENATAL VITAMIN 1 TAB PO SCH (08:40)
[2023-10-20] MEDS: FERROUS SULFATE 325 MG TAB PO SCH (08:40)
--- NOTE | 2023-10-20 10:10 | Obstetrical Progress Note ---
Date of Service October 20, 2023 Assessment & Plan (1) Normal course: Pt doing well No problem anticipate disch tomorrow Results & Data Vital Signs (Past 12 Hours) Vital Signs Temp Pulse Resp BP Pulse Ox O2 Del Method 10/20/23 07:50 36.5 C 68 18 104/63 98 Room Air 10/20/23 03:10 36.5 C 69 18 105/65 99 Room Air 10/19/23 22:10 36.7 C 74 18 111/72 98 Room Air
[2023-10-20] MEDS: bisacodyL 5 MG TABEC PO SCH (20:19)
[2023-10-20] MEDS: ACETAMINOPHEN 325 MG TAB PO PRN (23:29)
[2023-10-21 07:25] LABS: Hematocrit (blood only) 28.8 % (37.0-47.0); Hemoglobin 9.6 g/dl (12.0-16.0)
--- NOTE | 2023-10-21 08:03 | Obstetrical Progress Note ---
Date of Service October 21, 2023 Assessment & Plan Admission and Anticipated Discharge Date Admission Date: October 19, 2023 Subjective Patient is seen and examined. She feels well, no complaints. Ambulating without dizziness Voiding without difficulty Tolerating regular diet with out N&V Bleeding is minimal No fever/ chills/ CP/ SOB/ N&V/ Leg pain Breast feeding without problems Vital Signs Temp Pulse Resp BP Pulse Ox O2 Del Method 10/20/23 23:25 36.5 C 67 18 104/67 Room Air 10/20/23 16:10 36.7 C 73 20 103/68 97 Room Air 10/20/23 11:09 36.8 C 77 16 92/59 L 96 Room Air Lab Results 10/19/23 10/20/23 10/21/23 Range/Units 08:32 06:09 06:58 WBC 10.52 10.91 H (4.8-10.8) K/ul RBC 3.51 L 3.10 L (4.20-5.40) M/uL Hgb 11.6 L 10.2 L 9.6 L (12.0-16.0) g/dl Hct 33.0 L 29.8 L 28.8 L (37.0-47.0) % MCV 94.0 96.1 (80.0-100.0) fL MCH 33.0 32.9 (25.0-34.0) pg MCHC 35.2 34.2 (32.0-36.0) g/dL RDW Std Deviation 48.7 H 49.7 H (36.4-46.3) fL RDW Coeff of Darcy 14.2 14.4 (11.5-14.5) % Plt Count 227 197 (130-400) K/uL MPV 10.5 10.3 (9.4-12.4) fL Sodium 136 (136-145) mmol/L Potassium 3.5 (3.5-5.1) mmol/L Chloride 108 H (98-107) mmol/L Carbon Dioxide 20 L (21-32) mmol/L Anion Gap 8 (3-11) BUN 8 (6-23) mg/dl Creatinine 0.43 L (0.6-1.2) mg/dl Est Cr Clr Drug Dosing 171.5 ml/min Est GFR ( Amer) 147.5 ml/min Est GFR (Non-Af Amer) 127.2 ml/min BUN/Creatinine Ratio 18.6 (10-20) Glucose 130 H (70-99(Fasting)) mg/dl Calcium 8.6 (8.6-10.3) mg/dl Total Bilirubin 0.3 (0.2-1.0) mg/dl AST 18 (13-39) U/L ALT 15 (7-52) U/L Alkaline Phosphatase 124 H (34-104) U/L Total Protein 6.2 (6.0-8.3) gm/dl Albumin 3.6 (3.4-5.0) gm/dl Globulin 2.6 (2.5-4.0) gm/dl Albumin/Globulin Ratio 1.4 (0.9-2) PE: General: Alert, orientedx3, NAD Abd: soft, NT, fundus firm, below Umbilicus Perineum intact, Lochia rubra minimal Ext; NT, no edema AP: 38 yo s/p , ppd# 2 VSS Afebrile doing well Continue routine care All questions were answered D/C home , f/u in office Results & Data Vital Signs (Past 12 Hours) Vital Signs Temp Pulse Resp BP O2 Del Method 10/20/23 23:25 36.5 C 67 18 104/67 Room Air
[2023-10-21] MEDS ORDERED: bisacodyL 10 MG SUPP PR PRN (18:40)
== END 2023-10-21 14:00 | disposition home or self-care (01) | DRG 807 ==
LOC: 4S1 07:32 → 4E2 21:19